=== PATIENT | female | born 1930 | race Caucasian/White ===

== ENCOUNTER → 2017-12-28 10:10 | Outpatient (CLI) | payer MEDICARE, OTHER | END | disposition home or self-care (01) | LOC: D.MRI 10:10 | DX: M25.552 Pain in left hip (principal) ==

== ENCOUNTER 2018-04-14 12:42 | Inpatient (IN) | payer MEDICARE, OTHER ==
[~2018-04-14] VITALS: Ht 162.6 cm; Wt 68.2 kg
[2018-04-14] VITALS (14 sets, daily range): BP systolic 93–161; BP diastolic 37–85
--- NOTE | ~2018-04-14 | MORECARE ---
CASE MANAGEMENT DISCHARGE SUMMARY PATIENT: MAUREEN CANO UNIT: [id number] ADM DATE: 04/14/18 AGE: 87 : 30 SEX: F ROOM/BED: D.2306 AUTHOR: LEIGH STEWART PHYSICIAN: REFERRING PHYSICIAN: JUANITO JENKINS MD DATE OF SERVICE: 04/14/18 Discharge Plan Patient Name: [facility]UREEN CANO [facility] [facility] 1930 Planned Disposition: Home Anticipated Discharge Date: 04/17/18 Discharge Date: Expected LOS: 3 Initial Reviewer: [email or web address] Initial Review Date: 04/14/2018 Generated: 04/14/18 3:19 pm DCPIA - Discharge Planning Initial Assessment Updated by [email or web address]: Keerthi Mckay on 04/14/18 2:16 pm * How many steps to enter\exit or inside your home? None * PCP Dr. Oliveros * Pharmacy [facility] * Preadmission Environment Home with Family * ADLs Independent * Equipment Rolling Walker * List name and contact numbers for known caregivers / representatives who currently or will assist patient after discharge: Ivana Serrano - [facility] [phone] Abdoul Dot - [phone] or [facility] [phone] * Verbal permission to speak to the caregivers and representatives has been obtained from the patient. N/A * Community resources currently utilized None * Additional services required to return to the preadmission environment? No * Can the patient safely return to the preadmission environment? Yes * Has this patient been hospitalized within the prior 30 days at any hospital? No Patient Name: MAUREEN CANO Page 21648 at 1419 All edits/amendments must be made on the electronic document DICTATION DATE: 04/14/181417 BIOFUELS PROCESSING TECHNICIAN: NATALIE 04/14/181417 RPT#: [id number] DC DATE: STATUS: ADM IN [facility] [address] [place] [address] END OF REPORT
--- NOTE | ~2018-04-14 | MORECARE ---
CASE MANAGEMENT DISCHARGE SUMMARY PATIENT: MAUREEN CHRIS UNIT: [id number] ADM DATE: 04/14/18 AGE: 87 : 30 SEX: F ROOM/BED: D.9710 AUTHOR: LEIGH STEWART PHYSICIAN: REFERRING PHYSICIAN: JUANITO JENKINS MD DATE OF SERVICE: 04/23/18 Discharge Plan Patient Name: MAUREEN CHRIS [facility]:[place] : 1930 Planned Disposition: Home Anticipated Discharge Date: 04/23/18 Discharge Date: Expected LOS: 9 Initial Reviewer: [email or web address] Initial Review Date: 04/14/2018 Generated: 04/23/18 5:55 pm Comments DCP- Discharge Planning Updated by [email or web address]: Elbert Mcgovern on 04/23/18 3:[address] Patient Name: MAUREEN CHRIS Encounter No: [id number] : 1930 Primary Insurance: MEDICARE A & B Anticipated DC Date: 04-23-2018 Planned Disposition: Home DCP follow-up note: CM RECEIVED DISCHARGE PLANNING ORDER, MET WITH PT IN ROOM TO DISCUSS DISCHARGE NEEDS AND PLANNING. CM DISCUSSED AVAILABILITY OF HOME HEALTH, REHAB SERVICES AND MEDICAL EQUIPMENT. PT DENIES DISCHARGE NEEDS, DENIES NEED OF HOME HEALTH REPORTING SOMEONE IS WITH HER AT HOME MOST OF THE TIME TO ASSIST. SON OR DAUGHTER TO TRANSPORT HOME AT DISCHARGE. IMPORTANT MESSAGE FROM MEDICARE PROVIDED AND EXPLAINED. BRICK HANDLER NURSE NOTIFIED. MARE DURAN DCP- Discharge Planning Updated by [email or web address]: Keerthi Mckay on 04/14/18 1:[address] Patient Name: MAUREEN CHRIS Admission Status: ER Accout number: [id number] Admission Date: 04-14-2018 : 1930 Admission Diagnosis: Attending: JUANITO JENKINS Current LOS: 1 Anticipated DC Date: 04-17-2018 Planned Disposition: Home Primary Insurance: MEDICARE A & B Discharge Planning Comments: CM met with patient's son, Abdoul Chris, to complete initial dc planning assessment. Patient sedated and on a vent at this time. CM educated patient's son on the CM role and verbal consent given by patient to complete assessment. Patient lives at home with him. He reports that the patient is usually independent in her care at home. At discharge her son says he hopes she can return home. He feels this is a safe discharge plan. Patient's son denied known discharge needs at this time. CM will continue to follow and will assist as needed with dc plans/needs. See below for more assessment information. How many steps to enter\exit or inside your home? None * PCP Dr. Oliveros * Pharmacy [facility] on [address] * Preadmission Environment Home with Family * ADLs Independent * Equipment Rolling Walker * List name and contact numbers for known caregivers / representatives who currently or will assist patient after discharge: Ivana quiñonez - [phone] Abdoul Chris [phone] or [facility] [phone] * Verbal permission to speak to the caregivers and representatives has been obtained from the patient. N/A * Community resources currently utilized None * Additional services required to return to the preadmission environment? No * Can the patient safely return to the preadmission environment? Yes * Has this patient been hospitalized within the prior 30 days at any hospital? No Civil Engineering Project Designer: Keerthi Mckay DCPIA - Discharge Planning Initial Assessment Updated by [email or web address]: Keerthi Mckay on 04/14/18 2:16 pm * How many steps to enter\exit or inside your home? None * PCP Dr. Oliveros * Pharmacy [facility] on [address] * Preadmission Environment Home with Family * ADLs Independent * Equipment Rolling Walker * List name and contact numbers for known caregivers / representatives who currently or will assist patient after discharge: Ivana quiñonez - [phone] Abdoul Chris [phone] or [employer] [phone] * Verbal permission to speak to the caregivers and representatives has been obtained from the patient. N/A * Community resources currently utilized None * Additional services required to return to the preadmission environment? No * Can the patient safely return to the preadmission environment? Yes * Has this patient been hospitalized within the prior 30 days at any hospital? No Coverage Notice Reviewer: [email or web address] - Elbert Mcgovern Notice Issued Date-Time: 04/23/2018 15:25 Notice Type: IM Discharge Notice Notice Delivered To: Patient Relationship to Patient: Physical Therapy Aides Teacher Name: Delivery Method: HAND - Hand Delivered So Days: Prior Verbal Notification: Recipient Understood Notice: Yes Recipient Signature: Yes Med Rec Note Co-signed by Attending: Coverage Notice Comment: Last DP export: 04/14/18 1:37 Patient Name: MAUREEN CHRIS Page 55529 at 1655 All edits/amendments must be made on the electronic document DICTATION DATE: 04/23/181654 METER REPAIRER HELPER: NATALIE 04/23/181654 RPT#: [id number] DC DATE: STATUS: ADM IN [facility] [address] [place] [address] END OF REPORT
--- NOTE | ~2018-04-14 | MORECARE ---
CASE MANAGEMENT DISCHARGE SUMMARY PATIENT: MAUREEN CHRIS UNIT: [id number] ADM DATE: 04/14/18 AGE: 87 : 30 SEX: F ROOM/BED: D.8576 AUTHOR: LEIGH STEWART PHYSICIAN: REFERRING PHYSICIAN: JUANITO JENKINS MD DATE OF SERVICE: 04/24/18 Discharge Plan Patient Name: MAUREEN CHRIS Facility: [facility]:[place] : 1930 Planned Disposition: Home Anticipated Discharge Date: 04/23/18 Discharge Date: Expected LOS: 9 Initial Reviewer: [email or web address] Initial Review Date: 04/14/2018 Generated: 04/24/18 9:12 am Comments DCP- Discharge Planning Updated by [email or web address]: Elbert Mcgovern on 04/23/18 3:[address] Patient Name: MAUEREN CHRIS Encounter No: [id number] : 1930 Primary Insurance: MEDICARE A & B Anticipated DC Date: 04-23-2018 Planned Disposition: Home DCP follow-up note: CM RECEIVED DISCHARGE PLANNING ORDER, MET WITH PT IN ROOM TO DISCUSS DISCHARGE NEEDS AND PLANNING. CM DISCUSSED AVAILABILITY OF HOME HEALTH, REHAB SERVICES AND MEDICAL EQUIPMENT. PT DENIES DISCHARGE NEEDS, DENIES NEED OF HOME HEALTH REPORTING SOMEONE IS WITH HER AT HOME MOST OF THE TIME TO ASSIST. SON OR DAUGHTER TO TRANSPORT HOME AT DISCHARGE. IMPORTANT MESSAGE FROM MEDICARE PROVIDED AND EXPLAINED. EXECUTIVE MEETING MANAGER NURSE NOTIFIED. MARE DURAN DCP- Discharge Planning Updated by [email or web address]: Keerthi Mckay on 04/14/18 1:[address] Patient Name: MAUREEN CHRIS Admission Status: ER Accout number: [id number] Admission Date: 04-14-2018 : 1930 Admission Diagnosis: Attending: JUANITO JENKINS Current LOS: 1 Anticipated DC Date: 04-17-2018 Planned Disposition: Home Primary Insurance: MEDICARE A & B Discharge Planning Comments: CM met with patient's son, Abdoul Chris, to complete initial dc planning assessment. Patient sedated and on a vent at this time. CM educated patient's son on the CM role and verbal consent given by patient to complete assessment. Patient lives at home with him. He reports that the patient is usually independent in her care at home. At discharge her son says he hopes she can return home. He feels this is a safe discharge plan. Patient's son denied known discharge needs at this time. CM will continue to follow and will assist as needed with dc plans/needs. See below for more assessment information. How many steps to enter\exit or inside your home? None * PCP Dr. Oliveros * Pharmacy [facility] on [address] * Preadmission Environment Home with Family * ADLs Independent * Equipment Rolling Walker * List name and contact numbers for known caregivers / representatives who currently or will assist patient after discharge: Ivana quiñonez - [phone] Abdoul Chris [phone] or [facility] [phone] * Verbal permission to speak to the caregivers and representatives has been obtained from the patient. N/A * Community resources currently utilized None * Additional services required to return to the preadmission environment? No * Can the patient safely return to the preadmission environment? Yes * Has this patient been hospitalized within the prior 30 days at any hospital? No Dining Manager: Keerthi Mckay DCPIA - Discharge Planning Initial Assessment Updated by [email or web address]: Keerthi Mckay on 04/14/18 2:16 pm * How many steps to enter\exit or inside your home? None * PCP Dr. Oliveros * Pharmacy [facility] on [address] * Preadmission Environment Home with Family * ADLs Independent * Equipment Rolling Walker * List name and contact numbers for known caregivers / representatives who currently or will assist patient after discharge: Ivana quiñonez - [phone] Abdoul Chris [phone] or [employer] [phone] * Verbal permission to speak to the caregivers and representatives has been obtained from the patient. N/A * Community resources currently utilized None * Additional services required to return to the preadmission environment? No * Can the patient safely return to the preadmission environment? Yes * Has this patient been hospitalized within the prior 30 days at any hospital? No Coverage Notice Reviewer: [id number] - Elbert Mcgovern Notice Issued Date-Time: 04/23/2018 15:25 Notice Type: IM Discharge Notice Notice Delivered To: Patient Relationship to Patient: Adult School Teacher Name: Delivery Method: HAND - Hand Delivered So Days: Prior Verbal Notification: Recipient Understood Notice: Yes Recipient Signature: Yes Med Rec Note Co-signed by Attending: Coverage Notice Comment: Last DP export: 04/23/18 3:55 Patient Name: MAUREEN CHRIS Page 59241 at 0812 All edits/amendments must be made on the electronic document DICTATION DATE: 04/24/18811 VALET PARKING ATTENDANT: NATALIE 04/24/18811 RPT#: [id number] DC DATE: STATUS: ADM IN [facility] [address] [place] [address] END OF REPORT
--- NOTE | ~2018-04-14 | MORECARE ---
CASE MANAGEMENT DISCHARGE SUMMARY PATIENT: MAUREEN CHRIS UNIT: [id number] ADM DATE: 04/14/18 AGE: 87 : 30 SEX: F ROOM/BED: D.2306 AUTHOR: PATDOC PHYSICIAN: REFERRING PHYSICIAN: JUANITO JENKINS MD DATE OF SERVICE: 04/14/18 Discharge Plan Patient Name: MAUREEN CHRIS Facility: [facility]:[place] : 1930 Planned Disposition: Home Anticipated Discharge Date: 04/17/18 Discharge Date: Expected LOS: 3 Initial Reviewer: [email or web address] Initial Review Date: 04/14/2018 Generated: 04/14/18 3:36 pm DCP- Discharge Planning Updated by [email or web address]: Keerthi Mckay on 04/14/18 1:[address] Patient Name: MAUREEN CHRIS Admission Status: ER Accout number: [id number] Admission Date: 04-14-2018 : 1930 Admission Diagnosis: Attending: JUANITO JENKINS Current LOS: 1 Anticipated DC Date: 04-17-2018 Planned Disposition: Home Primary Insurance: MEDICARE A & B Discharge Planning Comments: CM met with patient's son, Abdoul Chris, to complete initial dc planning assessment. Patient sedated and on a vent at this time. CM educated patient's son on the CM role and verbal consent given by patient to complete assessment. Patient lives at home with him. He reports that the patient is usually independent in her care at home. At discharge her son says he hopes she can return home. He feels this is a safe discharge plan. Patient's son denied known discharge needs at this time. CM will continue to follow and will assist as needed with dc plans/needs. See below for more assessment information. How many steps to enter\exit or inside your home? None * PCP Dr. Oliveros * Pharmacy [facility] on [address] * Preadmission Environment Home with Family * ADLs Independent * Equipment Rolling Walker * List name and contact numbers for known caregivers / representatives who currently or will assist patient after discharge: Ivana Serrano - [facility] - [phone] Abdoul Chris - [phone] or [facility] [phone] * Verbal permission to speak to the caregivers and representatives has been obtained from the patient. N/A * Community resources currently utilized None * Additional services required to return to the preadmission environment? No * Can the patient safely return to the preadmission environment? Yes * Has this patient been hospitalized within the prior 30 days at any hospital? No Hand Bobbin Cleaner: Keerthi Mckay DCPIA - Discharge Planning Initial Assessment Updated by [email or web address]: Keerthi Mckay on 04/14/18 2:16 pm * How many steps to enter\exit or inside your home? None * PCP Dr. Oliveros * Pharmacy [facility] on [address] * Preadmission Environment Home with Family * ADLs Independent * Equipment Rolling Walker * List name and contact numbers for known caregivers / representatives who currently or will assist patient after discharge: Ivana Serrano - [facility] - [phone] Abdoul Dot - [phone] or [facility] [phone] * Verbal permission to speak to the caregivers and representatives has been obtained from the patient. N/A * Community resources currently utilized None * Additional services required to return to the preadmission environment? No * Can the patient safely return to the preadmission environment? Yes * Has this patient been hospitalized within the prior 30 days at any hospital? No Last DP export: 04/14/18 1:19 Patient Name: MAUREEN CHRIS Page 19285 at 1437 All edits/amendments must be made on the electronic document DICTATION DATE: 04/14/181435 RN CRITICAL CARE: NATALIE 04/14/181435 RPT#: [id number] DC DATE: STATUS: ADM IN [facility] [address] [place] [address] END OF REPORT
--- NOTE | ~2018-04-14 | MORECARE ---
CASE MANAGEMENT DISCHARGE SUMMARY PATIENT: MAUREEN CHRIS UNIT: [id number] ADM DATE: 04/14/18 AGE: 87 : 30 SEX: F ROOM/BED: D.0398 AUTHOR: PAT,DOC PHYSICIAN: REFERRING PHYSICIAN: JUANITO JENKINS MD DATE OF SERVICE: 04/26/18 Discharge Plan Patient Name: MAUREEN CHRIS Facility: [facility]:[place] : 1930 Planned Disposition: Home Anticipated Discharge Date: 04/26/18 Discharge Date: Expected LOS: 12 Initial Reviewer: [email or web address] Initial Review Date: 04/14/2018 Generated: 04/26/18 12:27 pm Comments DCP- Discharge Planning Updated by [email or web address]: Elbert Pham on 04/26/18 10:[address] Patient Name: MAUREEN CHRIS Encounter No: [id number] : 1930 Primary Insurance: MEDICARE A & B Anticipated DC Date: 04-26-2018 Planned Disposition: Home DCP follow-up note: CM MET WITH PT IN ROOM TO DISCUSS DISCHARGE NEEDS AND PLANNING. CM DISCUSSED AVAILABILITY OF HOME HEALTH, REHAB SERVICES AND MEDICAL EQUIPMENT. PT DENIES DISCHARGE NEEDS, REPORTS HAVING FAMILY WITH HER AT HOME MOST ALL OF THE TIME. PT REALLY DOES NOT WANT HOUSECALLS BUT WILL SPEAK TO THEM WHEN THEY COME BY THE HOUSE TO SEE IF THEY ARE NEEDED. PT REPORTS SHE DOESN'T MIND GOING TO THE DOCTORS OFFICE FOR ANY NEEDED VISITS. PT'S SON HERE TO TRANSPORT HOME AT DISCHARGE TODAY. IMPORTANT MESSAGE FROM MEDICARE PROVIDED AND EXPLAINED. RADIOLOGICAL ENGINEER NURSE NOTIFIED. Elbert Pham, CASE MANAGEMENT DCP- Discharge Planning Updated by [id number]: Elbert Pham on 04/23/18 3:[address] Patient Name: MAUREEN CHRIS Encounter No: [id number] : 1930 Primary Insurance: MEDICARE A & B Anticipated DC Date: 04-23-2018 Planned Disposition: Home DCP follow-up note: CM RECEIVED DISCHARGE PLANNING ORDER, MET WITH PT IN ROOM TO DISCUSS DISCHARGE NEEDS AND PLANNING. CM DISCUSSED AVAILABILITY OF HOME HEALTH, REHAB SERVICES AND MEDICAL EQUIPMENT. PT DENIES DISCHARGE NEEDS, DENIES NEED OF HOME HEALTH REPORTING SOMEONE IS WITH HER AT HOME MOST OF THE TIME TO ASSIST. SON OR DAUGHTER TO TRANSPORT HOME AT DISCHARGE. IMPORTANT MESSAGE FROM MEDICARE PROVIDED AND EXPLAINED. RADIOLOGICAL ENGINEER NURSE NOTIFIED. ELBERT PHAM, CASE MANAGEMENT DCP- Discharge Planning Updated by [email or web address]: Keerthi Mckay on 04/14/18 1:[address] Patient Name: MAUREEN CHRIS Admission Status: ER Accout number: [id number] Admission Date: 04-14-2018 : 1930 Admission Diagnosis: Attending: JUANITO JENKINS Current LOS: 1 Anticipated DC Date: 04-17-2018 Planned Disposition: Home Primary Insurance: MEDICARE A & B Discharge Planning Comments: CM met with patient's son, Abdoul Chris, to complete initial dc planning assessment. Patient sedated and on a vent at this time. CM educated patient's son on the CM role and verbal consent given by patient to complete assessment. Patient lives at home with him. He reports that the patient is usually independent in her care at home. At discharge her son says he hopes she can return home. He feels this is a safe discharge plan. Patient's son denied known discharge needs at this time. CM will continue to follow and will assist as needed with dc plans/needs. See below for more assessment information. How many steps to enter\exit or inside your home? None * PCP Dr. Oliveros * Pharmacy [facility] on [address] * Preadmission Environment Home with Family * ADLs Independent * Equipment Rolling Walker * List name and contact numbers for known caregivers / representatives who currently or will assist patient after discharge: Ivana Serrano - daughter - [phone] Abdoul Chris - [phone] or cell [phone] * Verbal permission to speak to the caregivers and representatives has been obtained from the patient. N/A * Community resources currently utilized None * Additional services required to return to the preadmission environment? No * Can the patient safely return to the preadmission environment? Yes * Has this patient been hospitalized within the prior 30 days at any hospital? No Laborer Wharf: Keerthi Mckay DCPIA - Discharge Planning Initial Assessment Updated by [email or web address]: Keerthi Mckay on 04/14/18 2:16 pm * How many steps to enter\exit or inside your home? None * PCP Dr. Oliveros * Pharmacy [facility] on [address] * Preadmission Environment Home with Family * ADLs Independent * Equipment Rolling Walker * List name and contact numbers for known caregivers / representatives who currently or will assist patient after discharge: Ivana Serrano - [facility] - [phone] Abdoul Chris - [phone] or [facility] [phone] * Verbal permission to speak to the caregivers and representatives has been obtained from the patient. N/A * Community resources currently utilized None * Additional services required to return to the preadmission environment? No * Can the patient safely return to the preadmission environment? Yes * Has this patient been hospitalized within the prior 30 days at any hospital? No Coverage Notice Reviewer: [email or web address] Pham Notice Issued Date-Time: 04/23/2018 15:25 Notice Type: IM Discharge Notice Notice Delivered To: Patient Relationship to Patient: Head Bander And Liner Operator Name: Delivery Method: HAND - Hand Delivered So Days: Prior Verbal Notification: Recipient Understood Notice: Yes Recipient Signature: Yes Med Rec Note Co-signed by Attending: Coverage Notice Comment: Reviewer: NICK Pham Notice Issued Date-Time: 04/26/2018 11:12 Notice Type: IM Discharge Notice Notice Delivered To: Patient Relationship to Patient: Head Bander And Liner Operator Name: Delivery Method: HAND - Hand Delivered So Days: Prior Verbal Notification: Recipient Understood Notice: Yes Recipient Signature: Yes Med Rec Note Co-signed by Attending: Coverage Notice Comment: Last DP export: 04/24/18 7:12 Patient Name: MAUREEN CHRIS Page 71270 at 1127 All edits/amendments must be made on the electronic document DICTATION DATE: 04/26/181126 SERVICE DESK TEAM LEAD: NATALIE 04/26/181126 RPT#: [id number] DC DATE: STATUS: ADM IN [facility] [address] [place] [address] END OF REPORT
[2018-04-14 13:08] LABS: BASOPHILS 0.1 % (0-2); EOSINOPHILS 0.3 % (0-7); HEMATOCRIT 33.7 % (36.0-48.0); HEMOGLOBIN 11.3 g/dL (12-16); IMMATURE GRANULOCYTES 0.3 % (0-5); LYMPHOCYTES 3.3 % (15-50); MCH 29.4 pg (26.0-34.0); MCHC 33.5 g/dL (31.0-37.0); MCV 87.5 fL (80.0-100.0); MEAN PLATELET VOLUME 9.7 fL (7.4-10.4); MONOCYTES 1.2 % (2-11); NEUTROPHILS 94.8 % (40-80); PLATELET COUNT 297 10x3/uL (130-400); RBC 3.85 10x6/uL (4.00-5.40); WBC 14.4 10x3/uL (4.8-10.8)
[2018-04-14 13:23] LABS: ALBUMIN 3.3 g/dL (3.4-5.0); ANION GAP 18.6 mmol/L (8-16); BILIRUBIN - TOTAL 0.12 mg/dL (0.2-1.3); C-REACTIVE PROTEIN 2.3 mg/dL (0.0-0.9); CALCIUM 9.5 mg/dL (8.5-10.1); CARBON DIOXIDE 22.9 mmol/L (21.0-32.0); CREATININE - SERUM 1.9 mg/dL (0.6-1.3); POTASSIUM - SERUM 4.5 mmol/L (3.5-5.1); PROTEIN - SERUM 7.1 g/dL (6.4-8.2)
[2018-04-14] MEDS ORDERED: UNITHROID88 MCG PO (15:22)
[2018-04-14] MEDS ORDERED: MAXZIDE 75/501 TAB PO (15:23)
[2018-04-14] MEDS ORDERED: CYCLOBENZAPRINE10 MG PO (15:23)
[2018-04-14] MEDS ORDERED: HYDROCODON-ACE1 EAC7 PO (15:25)
[2018-04-14] MEDS ORDERED: OMEPRAZOLE20 M1 PO (15:26)
[2018-04-14] MEDS ORDERED: LOPID600 MG PO (15:28)
[2018-04-14] MEDS ORDERED: MOBIC7.5 MG PO (15:29)
[2018-04-14] MEDS ORDERED: LOTREL 10-40 M1 EACH (15:30)
[2018-04-14] MEDS ORDERED: ALENDRONATE SOD70 MG PO (15:30)
[2018-04-14] MEDS ORDERED: DIFLUCAN150 MG PO (15:31)
[2018-04-15] VITALS (29 sets, daily range): BP systolic 92–137; BP diastolic 40–85
[2018-04-15 04:54] LABS: BASOPHILS 0 % (0-2); EOSINOPHILS 0 % (0-7); HEMOGLOBIN 9.1 g/dL (12-16); IMMATURE GRANULOCYTES 0.3 % (0-5); LYMPHOCYTES 3.3 % (15-50); MCH 29.2 pg (26.0-34.0); MCHC 33.8 g/dL (31.0-37.0); MCV 86.2 fL (80.0-100.0); MEAN PLATELET VOLUME 9.7 fL (7.4-10.4); MONOCYTES 1.1 % (2-11); NEUTROPHILS 95.3 % (40-80); PLATELET COUNT 303 10x3/uL (130-400); RBC 3.12 10x6/uL (4.00-5.40); RDW 13.1 % (11.5-14.5); WBC 10.8 10x3/uL (4.8-10.8)
[2018-04-15 04:57] LABS: HEMATOCRIT 26.9 % (36.0-48.0)
[2018-04-15 05:09] LABS: ANION GAP 19.8 mmol/L (8-16); CALCIUM 8.3 mg/dL (8.5-10.1); CARBON DIOXIDE 18.5 mmol/L (21.0-32.0); CREATININE - SERUM 1.5 mg/dL (0.6-1.3); POTASSIUM - SERUM 4.3 mmol/L (3.5-5.1)
[2018-04-16] VITALS (26 sets, daily range): BP systolic 104–168; BP diastolic 47–92; Ht 162.6 cm; Wt 68.2 kg
[2018-04-16 04:31] LABS: BASOPHILS 0.1 % (0-2); EOSINOPHILS 0 % (0-7); HEMATOCRIT 27.4 % (36.0-48.0); IMMATURE GRANULOCYTES 0.3 % (0-5); LYMPHOCYTES 2.7 % (15-50); MCH 28.8 pg (26.0-34.0); MCHC 32.8 g/dL (31.0-37.0); MCV 87.8 fL (80.0-100.0); MEAN PLATELET VOLUME 10.1 fL (7.4-10.4); MONOCYTES 1.9 % (2-11); PLATELET COUNT 332 10x3/uL (130-400); RBC 3.12 10x6/uL (4.00-5.40); RDW 13.4 % (11.5-14.5); WBC 14.3 10x3/uL (4.8-10.8)
[2018-04-16 05:03] LABS: % SATURATION 17 % (15-55); ALBUMIN 2.6 g/dL (3.4-5.0); ANION GAP 18.3 mmol/L (8-16); CALCIUM 7.8 mg/dL (8.5-10.1); CARBON DIOXIDE 19.6 mmol/L (21.0-32.0); CREATININE - SERUM 1.4 mg/dL (0.6-1.3); IRON 55 ug/dl (35-150); PHOSPHOROUS 4.1 mg/dL (2.5-4.9); POTASSIUM - SERUM 3.9 mmol/L (3.5-5.1); PROTEIN - SERUM 5.9 g/dL (6.4-8.2); TOTAL IRON BIND CAPACITY 321 ug/dl (260-445); UNSAT IRON BIND CAPACITY 266 ug/dl (150-375)
[2018-04-16 05:05] LABS: BILIRUBIN - TOTAL 0.08 mg/dL (0.2-1.3)
[2018-04-17] VITALS (21 sets, daily range): BP systolic 131–171; BP diastolic 56–113
[2018-04-17 04:52] LABS: BASOPHILS 0.1 % (0-2); EOSINOPHILS 0 % (0-7); HEMATOCRIT 27.1 % (36.0-48.0); HEMOGLOBIN 8.8 g/dL (12-16); IMMATURE GRANULOCYTES 1.1 % (0-5); LYMPHOCYTES 1.7 % (15-50); MCH 28.7 pg (26.0-34.0); MCHC 32.5 g/dL (31.0-37.0); MCV 88.3 fL (80.0-100.0); MONOCYTES 2.9 % (2-11); NEUTROPHILS 94.2 % (40-80); PLATELET COUNT 351 10x3/uL (130-400); RBC 3.07 10x6/uL (4.00-5.40); RDW 13.5 % (11.5-14.5)
[2018-04-17 04:59] LABS: ANION GAP 13.8 mmol/L (8-16); CALCIUM 7.6 mg/dL (8.5-10.1); CARBON DIOXIDE 22.7 mmol/L (21.0-32.0); CREATININE - SERUM 1.2 mg/dL (0.6-1.3); MAGNESIUM - SERUM 2.2 mg/dL (1.8-2.4); POTASSIUM - SERUM 3.5 mmol/L (3.5-5.1)
[2018-04-18] VITALS (8 sets, daily range): BP systolic 141–167; BP diastolic 62–93
[2018-04-18 04:40] LABS: BASOPHILS 0.1 % (0-2); EOSINOPHILS 0.1 % (0-7); HEMATOCRIT 32.3 % (36.0-48.0); HEMOGLOBIN 10.5 g/dL (12-16); IMMATURE GRANULOCYTES 1.7 % (0-5); LYMPHOCYTES 1.7 % (15-50); MCH 28.8 pg (26.0-34.0); MCHC 32.5 g/dL (31.0-37.0); MCV 88.7 fL (80.0-100.0); MEAN PLATELET VOLUME 9.9 fL (7.4-10.4); MONOCYTES 3.6 % (2-11); NEUTROPHILS 92.8 % (40-80); PLATELET COUNT 367 10x3/uL (130-400); RBC 3.64 10x6/uL (4.00-5.40); RDW 13.5 % (11.5-14.5)
[2018-04-18 04:43] LABS: WBC 18.6 10x3/uL (4.8-10.8)
[2018-04-18 04:58] LABS: ANION GAP 14.4 mmol/L (8-16); CALCIUM 7.9 mg/dL (8.5-10.1); CARBON DIOXIDE 24.4 mmol/L (21.0-32.0); CREATININE - SERUM 0.9 mg/dL (0.6-1.3); MAGNESIUM - SERUM 2.2 mg/dL (1.8-2.4); POTASSIUM - SERUM 3.8 mmol/L (3.5-5.1)
[2018-04-18 12:16] LABS: C1 ESTERASE INHIBITOR 42 mg/dL (21-39)
[2018-04-19] VITALS (11 sets, daily range): BP systolic 136–163; BP diastolic 56–73
[2018-04-19 05:58] LABS: BASOPHILS 0.1 % (0-2); EOSINOPHILS 0 % (0-7); HEMATOCRIT 30.1 % (36.0-48.0); HEMOGLOBIN 9.8 g/dL (12-16); IMMATURE GRANULOCYTES 2.1 % (0-5); LYMPHOCYTES 5.4 % (15-50); MCH 28.6 pg (26.0-34.0); MCHC 32.6 g/dL (31.0-37.0); MCV 87.8 fL (80.0-100.0); MEAN PLATELET VOLUME 9.7 fL (7.4-10.4); NEUTROPHILS 89.4 % (40-80); PLATELET COUNT 303 10x3/uL (130-400); RBC 3.43 10x6/uL (4.00-5.40); RDW 13.2 % (11.5-14.5); WBC 13.4 10x3/uL (4.8-10.8)
[2018-04-19 06:03] LABS: ANION GAP 14.2 mmol/L (8-16); APTT 27.4 SECONDS (22.8-39.4); CALCIUM 7.9 mg/dL (8.5-10.1); CARBON DIOXIDE 25.4 mmol/L (21.0-32.0); CREATININE - SERUM 0.9 mg/dL (0.6-1.3); INR 1.17 (0.85-1.17); MAGNESIUM - SERUM 2.1 mg/dL (1.8-2.4); POTASSIUM - SERUM 3.6 mmol/L (3.5-5.1); PROTIME 14.5 SECONDS (11.6-15.0)
[2018-04-20 00:56] VITALS: BP 147/55
[2018-04-20 06:21] VITALS: BP 152/71
[2018-04-20 06:37] LABS: BASOPHILS 0.2 % (0-2); EOSINOPHILS 0.3 % (0-7); HEMATOCRIT 28.9 % (36.0-48.0); HEMOGLOBIN 9.4 g/dL (12-16); IMMATURE GRANULOCYTES 4.1 % (0-5); LYMPHOCYTES 6.5 % (15-50); MCH 28.9 pg (26.0-34.0); MCHC 32.5 g/dL (31.0-37.0); MCV 88.9 fL (80.0-100.0); MEAN PLATELET VOLUME 9.8 fL (7.4-10.4); MONOCYTES 11.1 % (2-11); NEUTROPHILS 77.8 % (40-80); PLATELET COUNT 260 10x3/uL (130-400); RBC 3.25 10x6/uL (4.00-5.40); RDW 13.1 % (11.5-14.5)
[2018-04-20 06:41] LABS: ANION GAP 12.4 mmol/L (8-16); CALCIUM 7.7 mg/dL (8.5-10.1); CARBON DIOXIDE 26.1 mmol/L (21.0-32.0); CREATININE - SERUM 0.8 mg/dL (0.6-1.3); MAGNESIUM - SERUM 1.9 mg/dL (1.8-2.4); POTASSIUM - SERUM 3.5 mmol/L (3.5-5.1); WBC 8.9 10x3/uL (4.8-10.8)
[2018-04-20 08:03] VITALS: BP 178/68
[2018-04-20 09:03] LABS: % SATURATION 33 % (15-55); IRON 88 ug/dl (35-150); TOTAL IRON BIND CAPACITY 265 ug/dl (260-445); UNSAT IRON BIND CAPACITY 177 ug/dl (150-375)
[2018-04-20 11:52] VITALS: BP 122/62
[2018-04-20 15:58] VITALS: BP 151/67
[2018-04-20 20:00] VITALS: BP 129/51
[2018-04-21] VITALS: BP 150/59
[2018-04-21 06:04] VITALS: BP 150/60
[2018-04-21 06:27] LABS: BASOPHILS 0.1 % (0-2); EOSINOPHILS 0.7 % (0-7); HEMATOCRIT 28.7 % (36.0-48.0); HEMOGLOBIN 9.5 g/dL (12-16); IMMATURE GRANULOCYTES 5.2 % (0-5); LYMPHOCYTES 5.7 % (15-50); MCH 29.1 pg (26.0-34.0); MCHC 33.1 g/dL (31.0-37.0); MCV 87.8 fL (80.0-100.0); MEAN PLATELET VOLUME 9.6 fL (7.4-10.4); MONOCYTES 9.1 % (2-11); NEUTROPHILS 79.2 % (40-80); PLATELET COUNT 260 10x3/uL (130-400); RBC 3.27 10x6/uL (4.00-5.40); WBC 10.2 10x3/uL (4.8-10.8)
[2018-04-21 06:42] LABS: CALCIUM 8.1 mg/dL (8.5-10.1); CARBON DIOXIDE 26.2 mmol/L (21.0-32.0); CREATININE - SERUM 0.8 mg/dL (0.6-1.3); MAGNESIUM - SERUM 1.9 mg/dL (1.8-2.4); POTASSIUM - SERUM 3.2 mmol/L (3.5-5.1)
[2018-04-21 08:00] VITALS: BP 150/56
[2018-04-21 08:16] LABS: FOLATE (FOLIC ACID) - SERUM 9.5 ng/mL (>3.0)
[2018-04-21 16:02] VITALS: BP 126/84
[2018-04-21 20:12] VITALS: BP 131/62
[2018-04-22 00:20] VITALS: BP 131/53
[2018-04-22 04:49] VITALS: BP 127/53
[2018-04-22 08:52] VITALS: BP 168/61
[2018-04-22 11:02] VITALS: BP 160/62
[2018-04-22 15:44] VITALS: BP 141/50
[2018-04-22 21:59] VITALS: BP 143/58
[2018-04-23 02:24] VITALS: BP 148/66
[2018-04-23 05:45] VITALS: BP 143/60
[2018-04-23 09:05] VITALS: BP 146/73
[2018-04-23 11:08] VITALS: BP 130/86
[2018-04-23 16:16] VITALS: BP 118/69
[2018-04-23 20:00] VITALS: BP 150/67
[2018-04-24 00:51] VITALS: BP 145/63
[2018-04-24 04:57] VITALS: BP 140/57
[2018-04-24 10:44] LABS: BASOPHILS 0.2 % (0-2); EOSINOPHILS 0.1 % (0-7); HEMATOCRIT 33.5 % (36.0-48.0); HEMOGLOBIN 11.1 g/dL (12-16); IMMATURE GRANULOCYTES 7.2 % (0-5); LYMPHOCYTES 2.6 % (15-50); MCH 29.2 pg (26.0-34.0); MCHC 33.1 g/dL (31.0-37.0); MCV 88.2 fL (80.0-100.0); MEAN PLATELET VOLUME 9.8 fL (7.4-10.4); MONOCYTES 5.7 % (2-11); NEUTROPHILS 84.2 % (40-80); PLATELET COUNT 305 10x3/uL (130-400); RDW 13.4 % (11.5-14.5); WBC 19.3 10x3/uL (4.8-10.8)
[2018-04-24 10:54] LABS: ANION GAP 12.5 mmol/L (8-16); CALCIUM 8.7 mg/dL (8.5-10.1); CARBON DIOXIDE 29.4 mmol/L (21.0-32.0); CREATININE - SERUM 0.9 mg/dL (0.6-1.3); POTASSIUM - SERUM 3.9 mmol/L (3.5-5.1)
[2018-04-24 11:21] VITALS: BP 150/47
[2018-04-24 15:49] VITALS: BP 149/60
[2018-04-24 20:00] VITALS: BP 160/59
[2018-04-25 01:10] VITALS: BP 143/65
[2018-04-25 06:06] VITALS: BP 163/67
[2018-04-25 08:24] VITALS: BP 139/62
[2018-04-25 11:27] VITALS: BP 142/61
[2018-04-25 14:15] LABS: APPEARANCE HAZY (CLEAR); BILIRUBIN NEGATIVE (NEGATIVE); COLOR STRAW (YELLOW); GLUCOSE NEGATIVE (NEGATIVE); KETONE NEGATIVE (NEGATIVE); NITRITE NEGATIVE (NEGATIVE); PROTEIN NEGATIVE (NEGATIVE); SPECIFIC GRAVITY 1.005 (1.005-1.020); UROBILINOGEN NORMAL (NORMAL)
[2018-04-25 14:17] LABS: BACTERIA MODERATE /hpf (NONE SEEN); EPITHELIAL CELLS 0-5 /hpf (0-5); RED CELLS - URINE 0-5 /hpf (0-5); WHITE CELLS - URINE 0-5 /hpf (0-5); YEAST <1+ /hpf (NONE SEEN)
[2018-04-25 15:35] VITALS: BP 146/56
[2018-04-25 20:00] VITALS: BP 146/65
[2018-04-26] VITALS: BP 146/64
[2018-04-26 05:57] VITALS: BP 131/60
[2018-04-26 09:17] LABS: BASOPHILS 0.2 % (0-2); EOSINOPHILS 0.7 % (0-7); HEMATOCRIT 30.6 % (36.0-48.0); HEMOGLOBIN 9.9 g/dL (12-16); IMMATURE GRANULOCYTES 5.5 % (0-5); LYMPHOCYTES 7.4 % (15-50); MCH 28.6 pg (26.0-34.0); MCHC 32.4 g/dL (31.0-37.0); MCV 88.4 fL (80.0-100.0); MEAN PLATELET VOLUME 9.7 fL (7.4-10.4); MONOCYTES 7.6 % (2-11); NEUTROPHILS 78.6 % (40-80); PLATELET COUNT 254 10x3/uL (130-400); RBC 3.46 10x6/uL (4.00-5.40); RDW 13.5 % (11.5-14.5); WBC 12.3 10x3/uL (4.8-10.8)
[2018-04-26 09:28] LABS: ANION GAP 9.4 mmol/L (8-16); CALCIUM 8.3 mg/dL (8.5-10.1); CARBON DIOXIDE 33.7 mmol/L (21.0-32.0); CREATININE - SERUM 0.8 mg/dL (0.6-1.3); POTASSIUM - SERUM 3.1 mmol/L (3.5-5.1)
[2018-04-26 09:54] VITALS: BP 140/77
[2018-04-26] MEDS ORDERED: NORVASC10 MG PO (10:14)
[2018-04-26] MEDS ORDERED: SINGULAIR10 MG PO (10:15)
[2018-04-26 11:42] VITALS: BP 140/54
== END 2018-04-26 14:10 | disposition home or self-care (01) | DRG 915 ==
LOC: D.ER 12:42 → D.ICU 13:48 → D.M2 13:48 → D.SDCHOLD 04-19 08:59 → D.M2 04-19 09:00
PROVIDERS: Family Medicine; Internal Medicine Nephrology; Internal Medicine Pulmonary Disease; Legal Medicine
PROC: 5A1945Z Respiratory Ventilation, 24-96 Consecutive Hours (ICD-10-PCS; principal; 2018-04-14)
PROC: 0BBC3ZX Excision of Right Upper Lung Lobe, Percutaneous Approach, Diagnostic (ICD-10-PCS; 2018-04-19)
DX: T78.3XXA Angioneurotic edema, initial encounter (principal); J18.9 Pneumonia, unspecified organism; J96.00 Acute respiratory failure, unspecified whether with hypoxia or hypercapnia; N17.9 Acute kidney failure, unspecified; E87.2 Acidosis; J90 Pleural effusion, not elsewhere classified; C34.11 Malignant neoplasm of upper lobe, right bronchus or lung; K21.9 Gastro-esophageal reflux disease without esophagitis; J45.909 Unspecified asthma, uncomplicated; I12.9 Hypertensive chronic kidney disease with stage 1 through stage 4 chronic kidney disease, or unspecified chronic kidney disease; N18.9 Chronic kidney disease, unspecified; E03.9 Hypothyroidism, unspecified; E78.5 Hyperlipidemia, unspecified; D64.9 Anemia, unspecified; I95.9 Hypotension, unspecified; T50.905A Adverse effect of unspecified drugs, medicaments and biological substances, initial encounter; M81.0 Age-related osteoporosis without current pathological fracture; Z87.891 Personal history of nicotine dependence; R91.8 Other nonspecific abnormal finding of lung field; I51.7 Cardiomegaly; R59.0 Localized enlarged lymph nodes; J30.9 Allergic rhinitis, unspecified

== ENCOUNTER 2018-05-01 16:43 | Inpatient (IN) | payer MEDICARE, OTHER ==
[~2018-05-01] VITALS: Ht 162.6 cm; Wt 72.9 kg
--- NOTE | ~2018-05-01 | MORECARE ---
CASE MANAGEMENT DISCHARGE SUMMARY PATIENT: MAUREEN CANO UNIT: [id number] ADM DATE: 05/01/18 AGE: 87 : 30 SEX: F ROOM/BED: D.2218 AUTHOR: PAT,DOC PHYSICIAN: REFERRING PHYSICIAN: NAZANIN ARMENDARIZ MD DATE OF SERVICE: 05/12/18 Discharge Plan Patient Name: MAUREEN CANO Facility: [facility]:[place] : 1930 Planned Disposition: Home Anticipated Discharge Date: Discharge Date: Expected LOS: Initial Reviewer: [email or web address] Initial Review Date: 05/02/2018 Generated: 05/12/18 2:34 pm Comments DCP- Discharge Planning Updated by [email or web address]: Soo Kwon on 05/12/18 12:[address] Patient Name: MAUREEN CANO Admission Status: ER Accout number: [id number] Admission Date: 05-01-2018 : 1930 Admission Diagnosis:UNSPECIFIED ABDOMINAL PAIN Attending: NAZANIN ARMENDARIZ Current LOS: 11 Anticipated DC Date: Planned Disposition: Home Primary Insurance: MEDICARE A & B Discharge Planning Comments: CM SPOKE WITH MIKE WITH [facility] AND SHE CONFIRMED THAT PATIENT HAS BEEN ACCEPTED BY THEM. SHE STATES IF THE PATIENT IS DISCHARGE BEFORE 4PM TODAY TO CALL HER AT [phone] AND IF SHE IS DC'D AFTER 4PM TODAY CALL [phone] AND THEY WILL GET EVERYTHING SET UP AND MEET THE PATIENT AND FAMILY AT THE HOME. MD NOTE STATES THAT HOSPITAL BED AND OXYGEN WILL ARRIVE AT THE PATIENT'S HOME, HOSPICE SHOULD BE SETTING THAT UP. Senior Reactor Operator: Soo Kwon DCP- Discharge Planning Updated by [email or web address]: Olesya Goins on 05/11/18 8:[address] [facility] HERE FOR EVALUATION, SPOKE WITH ISAAC (DAUGHTER) SHE STATED THAT THE PLAN WAS FOR HER MOTHER TO GO TO HER HOUSE TOMORROW AFTER DME WAS SET UP. CM WILL CONTINUE TO FOLLOW AND ASSIST WITH DC PLANNING NEEDS DCP- Discharge Planning Updated by [email or web address]: Olesya Goins on 05/11/18 7:[address] HOSPICE REFERRAL SENT TO [facility], I SPOKE WITH SAIDA THEY WILL COME UP AND EVALUATE PATIENT DCP- Discharge Planning Updated by [email or web address]: Olesya Goins on 05/10/18 1:[address] spoke with patient's daughter in length about what Hospice is and what hospice can do for her mother. She would like to set up a time for all of her siblings and MD to talk about it. She said her mother does not know that there is no plan for additional treatment for the cancer DCP- Discharge Planning Updated by [email or web address]: Olesya Goins on 05/03/18 4:[address] Patient Name: MAUREEN CANO Admission Status: ER Accout number: [id number] Admission Date: 05-01-2018 : 1930 Admission Diagnosis:UNSPECIFIED ABDOMINAL PAIN Attending: NAZANIN ARMENDARIZ Current LOS: 2 Anticipated DC Date: Planned Disposition: Home Primary Insurance: MEDICARE A & B Discharge Planning Comments: CM met with patient to assess discharge planning needs. Patient stated that she lives in [place] and her adult son lives with her. She is independent with her care and uses a walker at home. She stated that there is 2 steps to enter in her home. She stated that either her daughter or son will be the one to drive her home at DC. I asked her about community resources and home health and rehab. She stated that she will think about it and she asked about meals on wheels. CM will continue to follow and assist with DC planning. Senior Reactor Operator: Olesya Goins DCPIA - Discharge Planning Initial Assessment Updated by [email or web address]: Olesya Goins on 05/03/18 4:45 pm * Is the patient Alert and Oriented? Yes * How many steps to enter\exit or inside your home? * PCP BRENDEN MARTÍNEZ * [facility] * Preadmission Environment Home with Family * ADLs Independent * Equipment Walker * List name and contact numbers for known caregivers / representatives who currently or will assist patient after discharge: NAZANIN [phone] * Verbal permission to speak to the caregivers and representatives has been obtained from the patient. Yes * Community resources currently utilized None * Additional services required to return to the preadmission environment? Yes * Can the patient safely return to the preadmission environment? Yes * Has this patient been hospitalized within the prior 30 days at any hospital? No Last DP export: 05/11/18 8:54 a Patient Name: MAUREEN CANO Page 59715 at 1334 All edits/amendments must be made on the electronic document DICTATION DATE: 05/12/181332 EPIC BEACON ANALYST: NATALIE 05/12/181332 RPT#: [id number] DC DATE: STATUS: ADM IN [facility] [address] [place] [address] END OF REPORT
--- NOTE | ~2018-05-01 | MORECARE ---
CASE MANAGEMENT DISCHARGE SUMMARY PATIENT: MAUREEN CANO UNIT: [id number] ADM DATE: 05/01/18 AGE: 87 : 30 SEX: F ROOM/BED: D.2218 AUTHOR: LEIGH STEWART PHYSICIAN: REFERRING PHYSICIAN: NAZANIN ARMENDARIZ MD DATE OF SERVICE: 05/13/18 Discharge Plan Patient Name: MAUREEN CANO Facility: [facility]:[place] : 1930 Planned Disposition: Home Anticipated Discharge Date: 05/13/18 Discharge Date: 05/13/2018 Expected LOS: 12 Initial Reviewer: [email or web address] Initial Review Date: 05/02/2018 Generated: 05/13/18 6:45 pm Comments DCP- Discharge Planning Updated by [email or web address]: Soo Kwon on 05/12/18 12:[address] Patient Name: MAUREEN CANO Admission Status: ER Accout number: [id number] Admission Date: 05-01-2018 : 1930 Admission Diagnosis:UNSPECIFIED ABDOMINAL PAIN Attending: NAZANIN ARMENDARIZ Current LOS: 11 Anticipated DC Date: Planned Disposition: Home Primary Insurance: MEDICARE A & B Discharge Planning Comments: CM SPOKE WITH MIKE WITH [facility] AND SHE CONFIRMED THAT PATIENT HAS BEEN ACCEPTED BY THEM. SHE STATES IF THE PATIENT IS DISCHARGE BEFORE 4PM TODAY TO CALL HER AT [phone] AND IF SHE IS DC'D AFTER 4PM TODAY CALL [phone] AND THEY WILL GET EVERYTHING SET UP AND MEET THE PATIENT AND FAMILY AT THE HOME. MD NOTE STATES THAT HOSPITAL BED AND OXYGEN WILL ARRIVE AT THE PATIENT'S HOME, HOSPICE SHOULD BE SETTING THAT UP. Loan Interviewer: Soo Kwon DCP- Discharge Planning Updated by [email or web address]: Olesya Goins on 05/11/18 8:[address] [facility] HERE FOR EVALUATION, SPOKE WITH ISAAC (DAUGHTER) SHE STATED THAT THE PLAN WAS FOR HER MOTHER TO GO TO HER HOUSE TOMORROW AFTER DME WAS SET UP. CM WILL CONTINUE TO FOLLOW AND ASSIST WITH DC PLANNING NEEDS DCP- Discharge Planning Updated by [email or web address]: Olesya Goins on 05/11/18 7:[address] HOSPICE REFERRAL SENT TO [facility], I SPOKE WITH SAIDA THEY WILL COME UP AND EVALUATE PATIENT DCP- Discharge Planning Updated by [id number]: Olesya Goins on 05/10/18 1:[address] spoke with patient's daughter in length about what Hospice is and what hospice can do for her mother. She would like to set up a time for all of her siblings and MD to talk about it. She said her mother does not know that there is no plan for additional treatment for the cancer DCP- Discharge Planning Updated by [email or web address]: Olesya Sabaken on 05/03/18 4:[address] Patient Name: MAUREEN CANO Admission Status: ER Accout number: [id number] Admission Date: 05-01-2018 : 1930 Admission Diagnosis:UNSPECIFIED ABDOMINAL PAIN Attending: NAZANIN ARMENDARIZ Current LOS: 2 Anticipated DC Date: Planned Disposition: Home Primary Insurance: MEDICARE A & B Discharge Planning Comments: CM met with patient to assess discharge planning needs. Patient stated that she lives in [place] and her adult son lives with her. She is independent with her care and uses a walker at home. She stated that there is 2 steps to enter in her home. She stated that either her daughter or son will be the one to drive her home at DC. I asked her about community resources and home health and rehab. She stated that she will think about it and she asked about meals on wheels. CM will continue to follow and assist with DC planning. Loan Interviewer: Olesya Goins DCPIA - Discharge Planning Initial Assessment Updated by [email or web address]: Olesya Sabaken on 05/03/18 4:45 pm * Is the patient Alert and Oriented? Yes * How many steps to enter\exit or inside your home? * PCP BRENDEN M[facility]NE[facility] * [facility] * Preadmission Environment Home with Family * ADLs Independent * Equipment Walker * List name and contact numbers for known caregivers / representatives who currently or will assist patient after discharge: NAZANIN [phone] * Verbal permission to speak to the caregivers and representatives has been obtained from the patient. Yes * Community resources currently utilized None * Additional services required to return to the preadmission environment? Yes * Can the patient safely return to the preadmission environment? Yes * Has this patient been hospitalized within the prior 30 days at any hospital? No Last DP export: 05/13/18 1:28 Patient Name: MAUREEN CANO Page 19592 at 1745 All edits/amendments must be made on the electronic document DICTATION DATE: 05/13/181744 SHEET TAILER: NATALIE 05/13/181744 RPT#: [id number] DC DATE:05/13/18 STATUS: DIS IN [facility] [address] [place] [address] END OF REPORT
--- NOTE | ~2018-05-01 | MORECARE ---
CASE MANAGEMENT DISCHARGE SUMMARY PATIENT: MAUREEN CANO UNIT: [id number] ADM DATE: 05/01/18 AGE: 87 : 30 SEX: F ROOM/BED: D.2218 AUTHOR: LEIGH STEWART PHYSICIAN: REFERRING PHYSICIAN: NAZANIN ARMENDARIZ MD DATE OF SERVICE: 05/13/18 Discharge Plan Patient Name: MAUREEN CANO Facility: [facility]:[place] : 1930 Planned Disposition: Home Anticipated Discharge Date: 05/13/18 Discharge Date: 05/13/2018 Expected LOS: 12 Initial Reviewer: [email or web address] Initial Review Date: 05/02/2018 Generated: 05/13/18 3:28 pm Comments DCP- Discharge Planning Updated by [email or web address]: Soo Kwon on 05/12/18 12:[address] Patient Name: MAUREEN CANO Admission Status: ER Accout number: [id number] Admission Date: 05-01-2018 : 1930 Admission Diagnosis:UNSPECIFIED ABDOMINAL PAIN Attending: NAZAINN ARMENDARIZ Current LOS: 11 Anticipated DC Date: Planned Disposition: Home Primary Insurance: MEDICARE A & B Discharge Planning Comments: CM SPOKE WITH MIKE WITH [facility] AND SHE CONFIRMED THAT PATIENT HAS BEEN ACCEPTED BY THEM. SHE STATES IF THE PATIENT IS DISCHARGE BEFORE 4PM TODAY TO CALL HER AT [phone] AND IF SHE IS DC'D AFTER 4PM TODAY CALL [phone] AND THEY WILL GET EVERYTHING SET UP AND MEET THE PATIENT AND FAMILY AT THE HOME. MD NOTE STATES THAT HOSPITAL BED AND OXYGEN WILL ARRIVE AT THE PATIENT'S HOME, HOSPICE SHOULD BE SETTING THAT UP. Cotton Baler: Soo Kwon DCP- Discharge Planning Updated by [email or web address]: Olesya Goins on 05/11/18 8:[address] [facility] HERE FOR EVALUATION, SPOKE WITH ISAAC (DAUGHTER) SHE STATED THAT THE PLAN WAS FOR HER MOTHER TO GO TO HER HOUSE TOMORROW AFTER DME WAS SET UP. CM WILL CONTINUE TO FOLLOW AND ASSIST WITH DC PLANNING NEEDS DCP- Discharge Planning Updated by [email or web address]: Olesya Goins on 05/11/18 7:[address] HOSPICE REFERRAL SENT TO [facility], I SPOKE WITH SAIDA THEY WILL COME UP AND EVALUATE PATIENT DCP- Discharge Planning Updated by [id number]: Olesya Goins on 05/10/18 1:[address] spoke with patient's daughter in length about what Hospice is and what hospice can do for her mother. She would like to set up a time for all of her siblings and MD to talk about it. She said her mother does not know that there is no plan for additional treatment for the cancer DCP- Discharge Planning Updated by [email or web address]: Olesya Goins on 05/03/18 4:[address] Patient Name: MAUREEN ACNO Admission Status: ER Accout number: [id number] Admission Date: 05-01-2018 : 1930 Admission Diagnosis:UNSPECIFIED ABDOMINAL PAIN Attending: NAZANIN ARMENDARIZ Current LOS: 2 Anticipated DC Date: Planned Disposition: Home Primary Insurance: MEDICARE A & B Discharge Planning Comments: CM met with patient to assess discharge planning needs. Patient stated that she lives in [place] and her adult son lives with her. She is independent with her care and uses a walker at home. She stated that there is 2 steps to enter in her home. She stated that either her daughter or son will be the one to drive her home at DC. I asked her about community resources and home health and rehab. She stated that she will think about it and she asked about meals on wheels. CM will continue to follow and assist with DC planning. Cotton Baler: Olesya Goins DCPIA - Discharge Planning Initial Assessment Updated by [email or web address]: Olesya Sabaken on 05/03/18 4:45 pm * Is the patient Alert and Oriented? Yes * How many steps to enter\exit or inside your home? * PCP BREND[facility] M[facility]NE[facility] * [facility] * Preadmission Environment Home with Family * ADLs Independent * Equipment Walker * List name and contact numbers for known caregivers / representatives who currently or will assist patient after discharge: NAZANIN [phone] * Verbal permission to speak to the caregivers and representatives has been obtained from the patient. Yes * Community resources currently utilized None * Additional services required to return to the preadmission environment? Yes * Can the patient safely return to the preadmission environment? Yes * Has this patient been hospitalized within the prior 30 days at any hospital? No Last DP export: 05/12/18 12:34 Patient Name: MAUREEN CANO Page 78440 at 1428 All edits/amendments must be made on the electronic document DICTATION DATE: 05/13/181426 CARRY ALL DRIVER: NATALIE 05/13/181426 RPT#: [id number] DC DATE:05/13/18 STATUS: DIS IN [facility] [address] [place] [address] END OF REPORT
--- NOTE | ~2018-05-01 | MORECARE ---
CASE MANAGEMENT DISCHARGE SUMMARY PATIENT: MAUREEN CANO UNIT: [id number] ADM DATE: 05/01/18 AGE: 87 : 30 SEX: F ROOM/BED: D.2218 AUTHOR: LEIGH STEWART PHYSICIAN: REFERRING PHYSICIAN: NAZANIN ARMENDARIZ MD DATE OF SERVICE: 05/14/18 Discharge Plan Patient Name: MAUREEN CANO Facility: [facility]:[place] : 1930 Planned Disposition: Home Anticipated Discharge Date: 05/13/18 Discharge Date: 05/13/2018 Expected LOS: 12 Initial Reviewer: [email or web address] Initial Review Date: 05/02/2018 Generated: 05/14/18 10:47 am Comments DCP- Discharge Planning Updated by [email or web address]: Linneareginald Mccarthy on 05/13/18 4:[address] LATE ENTRY 0950 PATIENT WAS NOT DISCHARGE 05/12/18 DUE TO LATENESS OF HOUR WITH ARRIVAL OF DME AND PATIENT REFUSAL TO HAVE AMBULANCE TRANSPORT.PATIENT WAS STILL ONSITE BY 1999. SON REPORTEDLY SAID IT WAS TOO LATE TO DISCHARGE BY THE TIME ALL ARRANGEMENTS COMPLETED. [facility] CALLED THIS AM BY PRIMARY NURSE AND MANAGER DELI. PORTABLE OXYGEN TANK REQUIRED FOR DISCHARGE BY PERSONAL CAR. PATIENT HAD DECLINED AMBULANCE. PRADEEP SPOKE WITH [facility]. SHE STATED JOHNNY WOULD CALL PROVIDER FOR DME AND HAVE PORTABLE OXYGEN DELIVERED TO THE PATIENT'S BEDSIDE. PRIMARY NURSE COMMUNICATED WITH THE PATIENT AND FAMILY. DCP- Discharge Planning Updated by [email or web address]: Soo Kwon on 05/12/18 12:[address] Patient Name: MAUREEN CANO Admission Status: ER Accout number: [id number] Admission Date: 05-01-2018 : 1930 Admission Diagnosis:UNSPECIFIED ABDOMINAL PAIN Attending: NAZANIN ARMENDARIZ Current LOS: 11 Anticipated DC Date: Planned Disposition: Home Primary Insurance: MEDICARE A & B Discharge Planning Comments: PRADEEP SPOKE WITH MIKE WITH [facility] AND SHE CONFIRMED THAT PATIENT HAS BEEN ACCEPTED BY THEM. SHE STATES IF THE PATIENT IS DISCHARGE BEFORE 4PM TODAY TO CALL HER AT [phone] AND IF SHE IS DC'D AFTER 4PM TODAY CALL [phone] AND THEY WILL GET EVERYTHING SET UP AND MEET THE PATIENT AND FAMILY AT THE HOME. MD NOTE STATES THAT HOSPITAL BED AND OXYGEN WILL ARRIVE AT THE PATIENT'S HOME, HOSPICE SHOULD BE SETTING THAT UP. It Sales Executive: Soo Kwon DCP- Discharge Planning Updated by [email or web address]: Olesya Goins on 05/11/18 8:[address] [facility] HERE FOR EVALUATION, SPOKE WITH ISAAC (DAUGHTER) SHE STATED THAT THE PLAN WAS FOR HER MOTHER TO GO TO HER HOUSE TOMORROW AFTER DME WAS SET UP. CM WILL CONTINUE TO FOLLOW AND ASSIST WITH DC PLANNING NEEDS DCP- Discharge Planning Updated by [id number]: Olesya Goins on 05/11/18 7:[address] HOSPICE REFERRAL SENT TO [facility], I SPOKE WITH SAIDA THEY WILL COME UP AND EVALUATE PATIENT DCP- Discharge Planning Updated by [email or web address]: Olesya Goins on 05/10/18 1:[address] spoke with patient's daughter in length about what Hospice is and what hospice can do for her mother. She would like to set up a time for all of her siblings and MD to talk about it. She said her mother does not know that there is no plan for additional treatment for the cancer DCP- Discharge Planning Updated by [email or web address]: Olesya Goins on 05/03/18 4:[address] Patient Name: MAUREEN CANO Admission Status: ER Accout number: [id number] Admission Date: 05-01-2018 : 1930 Admission Diagnosis:UNSPECIFIED ABDOMINAL PAIN Attending: NAZANIN ARMENDARIZ Current LOS: 2 Anticipated DC Date: Planned Disposition: Home Primary Insurance: MEDICARE A & B Discharge Planning Comments: CM met with patient to assess discharge planning needs. Patient stated that she lives in [place] and her adult son lives with her. She is independent with her care and uses a walker at home. She stated that there is 2 steps to enter in her home. She stated that either her daughter or son will be the one to drive her home at DC. I asked her about community resources and home health and rehab. She stated that she will think about it and she asked about meals on wheels. CM will continue to follow and assist with DC planning. It Sales Executive: Olesya Goins DCPIA - Discharge Planning Initial Assessment Updated by [email or web address]: Olesya Goins on 05/03/18 4:45 pm * Is the patient Alert and Oriented? Yes * How many steps to enter\exit or inside your home? * PCP [facility] * [facility] * Preadmission Environment Home with Family * ADLs Independent * Equipment Walker * List name and contact numbers for known caregivers / representatives who currently or will assist patient after discharge: NAZANIN [phone] * Verbal permission to speak to the caregivers and representatives has been obtained from the patient. Yes * Community resources currently utilized None * Additional services required to return to the preadmission environment? Yes * Can the patient safely return to the preadmission environment? Yes * Has this patient been hospitalized within the prior 30 days at any hospital? No Last DP export: 05/13/18 4:52 Patient Name: MAUREEN CANO Page 08564 at 0947 All edits/amendments must be made on the electronic document DICTATION DATE: 05/14/18946 DRIVER'S LICENSE REVIEWING OFFICER: NATALIE 05/14/18946 RPT#: [id number] DC DATE:05/13/18 STATUS: DIS IN [facility] [address] [place] [address] END OF REPORT
--- NOTE | ~2018-05-01 | HEMODYNAMI ---
PATIENT:MAUREEN CANO MEDICAL RECORD: [id number] : [birth year] LOCATION:[facility] D.2218 ADMISSION DATE: 05/01/18 Generatedon:05/04/201817:40 Patient name: MAUREEN CANO Patient #: [id number] SSN: : 1930 Date of study: 05/04/2018 Page: Of Hemodynamic Procedure Report Patient Data Patient Demographics Procedure consent was obtained First Name: MAUREEN Gender: Female Last Name: RACHAEL : 1930 [facility] Initial: David Age: 87 year(s) Patient #: [id number] Race: Unknown Additional ID: [id number] Contact details [address]: [address] [place] [address] State: [place] City: [place] Zip code: [address] Admission Admission Data Admission Date: 05/01/2018 Admission Time: 23:38 Room #: .2218 Height (in.): 64 BSA: 1.68 (m2) Height (cm.): 162.56 BMI: 24.03 (kg/m2) Weight (lbs.): 140 Weight (kg.): 63.5 Procedure Procedure Types Cath Procedure Peripheral Cath Diagnostic Procedure Cabinet Maker Peripheral Procedures Procedure Description Procedure Date Procedure Date: 05/04/2018 Procedure Start Time: 17:32 Procedure Staff Name Function Terrance Gustafson MD Performing Physician Arianna Ramos RT Livestock Broker Deidra Banerjee RN Nurse Brando Muhammad RT Scrub Procedure Data Cath Procedure Fluoroscopy Diagnostic fluoroscopy Total fluoroscopy Time: 0.1 time: 0.1 min min Diagnostic fluoroscopy Total fluoroscopy dose: 1 dose: 1 mGy mGy Hemodynamics Rest BSA: 1.68 (m2) O2 Consumption: Estimated: 228.48 (ml/min) O2 Consumption indexed : Estimated:136 (ml/min/m) Pre Cath Intra NCS Post Cath Procedure Log Time Note 17:23:41 Patient Weight : 140 lbs 17:23:45 Patient Height : 64 inches 17:23:51 Time tracking: Stay late (Procedures after 5:00pm) 17:30:57 Signed procedure consent form obtained from patient. 17:31:12 Right Arm area was prepped with chlora-prep and draped in sterile fashion 17:31:15 Physician arrived 17:31:17 --------ALL STOP TIME OUT------ 17:31:17 Final Timeout: patient, procedure, and site verified with staff and physician. All members of the team are in agreement. 17:31:36 Use device set IR Diagnostic 17:31:38 Sterile Angiographic Pack opened to sterile field. 17:31:38 Bag Decanter () opened to sterile field. 17:31:46 PowerPICC 5Fr double lumen catheter opened to sterile field. 17:31:52 SHIELD Sorbaview ([id number]) opened to sterile field. 17:31:58 SUTURE ETHILON 2-0 BLK MONO FS opened to sterile field. 17:32:08 Procedure started. 17:32:08 Full Disclosure recording started 17:32:13 Local anesthetic to right arm with Lidocaine 1% by Terrance Gustafson MD.INITIAL ACCESS ONLY 17:32:16 PICC 17:37:29 Venous access obtained using ultrasound guidance. 17:37:32 PICC line was trimmed to 43cm and advanced to the superior vena cava.Position verified under fluoroscopy. 17:39:10 Procedure ended.(Physican Out) 17:39:21 Fluoroscopy time 00.10 minutes. 17:39:23 Fluoroscopy dose: 1 mGy 17:39:23 Flurop Dose total: 1 17:39:24 Procedure and supply charges have been captured, reviewed, submitted and are correct. Device Usage Item Name Manufacture Quantity Catalog Hospital Part Current Minimal Lot# / Number Charge Number Stock Stock Serial# Code Sterile [place] 1 [id number] 5 Angiographic Health Pack Bag Decanter Microtek 1 [id number] 5 () [employer] PowerPICC [place] 1 [id number] [id number] 5 5Fr double lumen catheter SHIELD [employer] 1 [id number] [id number] 5 Sorbaview ([id number]) SUTURE Ethicon 1 [id number] 5 ETHILON 2-0 BLK MONO FS Signature Audit De[place] Stage Time Signature Unsigned Intra-Procedure 05/04/2018 Arianna Ramos 5:40:13 PM RT(R) [facility] [address] [place] [address]
--- NOTE | ~2018-05-01 | MORECARE ---
CASE MANAGEMENT DISCHARGE SUMMARY PATIENT: MAUREEN CANO UNIT: [id number] ADM DATE: 05/01/18 AGE: 87 : 30 SEX: F ROOM/BED: D.2218 AUTHOR: LEIGH STEWART PHYSICIAN: REFERRING PHYSICIAN: NAZANIN ARMENDARIZ MD DATE OF SERVICE: 05/11/18 Discharge Plan Patient Name: MAUREEN CANO Facility: [facility]:[place] : 1930 Planned Disposition: Home Anticipated Discharge Date: Discharge Date: Expected LOS: Initial Reviewer: [id number] Initial Review Date: 05/02/2018 Generated: 05/11/18 10:53 am Comments DCP- Discharge Planning Updated by [email or web address]: Olesya Goins on 05/11/18 8:[address] [facility] HERE FOR [facility]ALUATION, SPOKE WITH ISAAC (DAUGHTER) SHE STATED THAT THE PLAN WAS FOR HER MOTHER TO GO TO HER HOUSE TOMORROW AFTER DME WAS SET UP. CM WILL CONTINUE TO FOLLOW AND ASSIST WITH DC PLANNING NEEDS DCP- Discharge Planning Updated by [email or web address]: Olesya Goins on 05/11/18 7:[address] HOSPICE REFERRAL SENT TO [facility], I SPOKE WITH SAIDA THEY WILL COME UP AND EVALUATE PATIENT DCP- Discharge Planning Updated by [email or web address]: Olesya Goins on 05/10/18 1:[address] spoke with patient's daughter in length about what Hospice is and what hospice can do for her mother. She would like to set up a time for all of her siblings and MD to talk about it. She said her mother does not know that there is no plan for additional treatment for the cancer DCP- Discharge Planning Updated by [email or web address]: Olesya Goins on 05/03/18 4:[address] Patient Name: MAUREEN CANO Admission Status: ER Accout number: [id number] Admission Date: 05-01-2018 : 1930 Admission Diagnosis:UNSPECIFIED ABDOMINAL PAIN Attending: NAZANIN ARMENDARIZ Current LOS: 2 Anticipated DC Date: Planned Disposition: Home Primary Insurance: MEDICARE A & B Discharge Planning Comments: CM met with patient to assess discharge planning needs. Patient stated that she lives in [place] and her adult son lives with her. She is independent with her care and uses a walker at home. She stated that there is 2 steps to enter in her home. She stated that either her daughter or son will be the one to drive her home at DC. I asked her about community resources and home health and rehab. She stated that she will think about it and she asked about meals on wheels. CM will continue to follow and assist with DC planning. Acetylene Operator: Olesya Goins DCPIA - Discharge Planning Initial Assessment Updated by [id number]: Olesya Goins on 05/03/18 4:45 pm * Is the patient Alert and Oriented? Yes * How many steps to enter\exit or inside your home? * PCP BRENDEN [facility]ARTÍNEZ * Pharmacy [facility] * Preadmission Environment Home with Family * ADLs Independent * Equipment Walker * List name and contact numbers for known caregivers / representatives who currently or will assist patient after discharge: NAZANIN [phone] * Verbal permission to speak to the caregivers and representatives has been obtained from the patient. Yes * Community resources currently utilized None * Additional services required to return to the preadmission environment? Yes * Can the patient safely return to the preadmission environment? Yes * Has this patient been hospitalized within the prior 30 days at any hospital? No Last DP export: 05/11/18 8:02 a Patient Name: MAUREEN CANO Page 13703 at 0954 All edits/amendments must be made on the electronic document DICTATION DATE: 05/11/18952 ROVING DEPARTMENT SUPERVISOR: NATALIE 05/11/18952 RPT#: [id number] DC DATE: STATUS: ADM IN [facility] [address] [facility] [place] [address] END OF REPORT
--- NOTE | ~2018-05-01 | MORECARE ---
CASE MANAGEMENT DISCHARGE SUMMARY PATIENT: MAUREEN CANO UNIT: [id number] ADM DATE: 05/01/18 AGE: 87 : 30 SEX: F ROOM/BED: D.2218 AUTHOR: LEIGH STEWART PHYSICIAN: REFERRING PHYSICIAN: NAZANIN ARMENDARIZ MD DATE OF SERVICE: 05/11/18 Discharge Plan Patient Name: MAUREEN CANO Facility: [facility]:[place] : 1930 Planned Disposition: Home Anticipated Discharge Date: Discharge Date: Expected LOS: Initial Reviewer: [email or web address] Initial Review Date: 05/02/2018 Generated: 05/11/18 9:49 am Comments DCP- Discharge Planning Updated by [email or web address]: Olesya Goins on 05/10/18 1:[address] spoke with patient's daughter in length about what Hospice is and what hospice can do for her mother. She would like to set up a time for all of her siblings and MD to talk about it. She said her mother does not know that there is no plan for additional treatment for the cancer DCP- Discharge Planning Updated by [email or web address]: Olesya Goins on 05/03/18 4:[address] Patient Name: MAUREEN CANO Admission Status: ER Accout number: [id number] Admission Date: 05-01-2018 : 1930 Admission Diagnosis:UNSPECIFIED ABDOMINAL PAIN Attending: NAZANIN ARMENDARIZ Current LOS: 2 Anticipated DC Date: Planned Disposition: Home Primary Insurance: MEDICARE A & B Discharge Planning Comments: CM met with patient to assess discharge planning needs. Patient stated that she lives in [place] and her adult son lives with her. She is independent with her care and uses a walker at home. She stated that there is 2 steps to enter in her home. She stated that either her daughter or son will be the one to drive her home at DC. I asked her about community resources and home health and rehab. She stated that she will think about it and she asked about meals on wheels. CM will continue to follow and assist with DC planning. Senior Project Manager: Olesya Goins DCPIA - Discharge Planning Initial Assessment Updated by [email or web address]: Olesya Goins on 05/03/18 4:45 pm * Is the patient Alert and Oriented? Yes * How many steps to enter\exit or inside your home? * PCP BR[facility] * [facility] * Preadmission Environment Home with Family * ADLs Independent * Equipment Walker * List name and contact numbers for known caregivers / representatives who currently or will assist patient after discharge: NAZANIN [phone] * Verbal permission to speak to the caregivers and representatives has been obtained from the patient. Yes * Community resources currently utilized None * Additional services required to return to the preadmission environment? Yes * Can the patient safely return to the preadmission environment? Yes * Has this patient been hospitalized within the prior 30 days at any hospital? No Last DP export: 05/10/18 1:31 p Patient Name: MAUREEN CANO Page 20034 at 0849 All edits/amendments must be made on the electronic document DICTATION DATE: 05/11/18847 WINDMILL TECHNICIAN: NATALIE 05/11/18847 RPT#: [id number] DC DATE: STATUS: ADM IN [facility] [address] [place] [address] END OF REPORT
--- NOTE | ~2018-05-01 | MORECARE ---
CASE MANAGEMENT DISCHARGE SUMMARY PATIENT: MAUREEN CANO UNIT: [id number] ADM DATE: 05/01/18 AGE: 87 : 30 SEX: F ROOM/BED: D.2218 AUTHOR: LEIGH STEWART PHYSICIAN: REFERRING PHYSICIAN: NAZANIN ARMENDARIZ MD DATE OF SERVICE: 05/11/18 Discharge Plan Patient Name: MAUREEN CANO Facility: [facility]:[place] : 1930 Planned Disposition: Home Anticipated Discharge Date: Discharge Date: Expected LOS: Initial Reviewer: [email or web address] Initial Review Date: 05/02/2018 Generated: 05/11/18 10:02 am Comments DCP- Discharge Planning Updated by [email or web address]: Olesya Goins on 05/11/18 7:[address] HOSPICE REFERRAL SENT TO [facility], I SPOKE WITH SAIDA THEY WILL COME UP AND EVALUATE PATIENT DCP- Discharge Planning Updated by [email or web address]: Olesya Goins on 05/10/18 1:[address] spoke with patient's daughter in length about what Hospice is and what hospice can do for her mother. She would like to set up a time for all of her siblings and MD to talk about it. She said her mother does not know that there is no plan for additional treatment for the cancer DCP- Discharge Planning Updated by [email or web address]: Olesya Goins on 05/03/18 4:[address] Patient Name: MAUREEN CANO Admission Status: ER Accout number: [id number] Admission Date: 05-01-2018 : 1930 Admission Diagnosis:UNSPECIFIED ABDOMINAL PAIN Attending: NAZANIN ARMENDARIZ Current LOS: 2 Anticipated DC Date: Planned Disposition: Home Primary Insurance: MEDICARE A & B Discharge Planning Comments: CM met with patient to assess discharge planning needs. Patient stated that she lives in [place] and her adult son lives with her. She is independent with her care and uses a walker at home. She stated that there is 2 steps to enter in her home. She stated that either her daughter or son will be the one to drive her home at DC. I asked her about community resources and home health and rehab. She stated that she will think about it and she asked about meals on wheels. CM will continue to follow and assist with DC planning. Experimental Assembler: Olesya Goins DCPIA - Discharge Planning Initial Assessment Updated by [email or web address]: Olesya Goins on 05/03/18 4:45 pm * Is the patient Alert and Oriented? Yes * How many steps to enter\exit or inside your home? * PCP [facility] * [facility] * Preadmission Environment Home with Family * ADLs Independent * Equipment Walker * List name and contact numbers for known caregivers / representatives who currently or will assist patient after discharge: NAZANIN [phone] * Verbal permission to speak to the caregivers and representatives has been obtained from the patient. Yes * Community resources currently utilized None * Additional services required to return to the preadmission environment? Yes * Can the patient safely return to the preadmission environment? Yes * Has this patient been hospitalized within the prior 30 days at any hospital? No External Providers External Provider: [facility] Next Contact Date: Service Request Date: Service Type: Resolution: Reviewer: Comments: Last DP export: 05/11/18 7:49 a Patient Name: MAUREEN CANO Page 98966 at 0902 All edits/amendments must be made on the electronic document DICTATION DATE: 05/11/18900 B OPERATOR: NATALIE 05/11/18900 RPT#: [id number] DC DATE: STATUS: ADM IN [facility] [address] [place] [address] END OF REPORT
--- NOTE | ~2018-05-01 | MORECARE ---
CASE MANAGEMENT DISCHARGE SUMMARY PATIENT: MAUREEN CANO UNIT: [id number] ADM DATE: 05/01/18 AGE: 87 : 30 SEX: F ROOM/BED: D.2218 AUTHOR: LEIGH STEWART PHYSICIAN: REFERRING PHYSICIAN: NAZANIN ARMENDARIZ MD DATE OF SERVICE: 05/10/18 Discharge Plan Patient Name: MAUREEN CANO Facility: [facility]:[place] : 1930 Planned Disposition: Home Anticipated Discharge Date: Discharge Date: Expected LOS: Initial Reviewer: [email or web address] Initial Review Date: 05/02/2018 Generated: 05/10/18 3:31 pm Comments DCP- Discharge Planning Updated by [email or web address]: Olesya Goins on 05/10/18 1:[address] spoke with patient's daughter in length about what Hospice is and what hospice can do for her mother. She would like to set up a time for all of her siblings and MD to talk about it. She said her mother does not know that there is no plan for additional treatment for the cancer DCP- Discharge Planning Updated by [email or web address]: Olesya Goins on 05/03/18 4:[address] Patient Name: MAUREEN CANO Admission Status: ER Accout number: [id number] Admission Date: 05-01-2018 : 1930 Admission Diagnosis:UNSPECIFIED ABDOMINAL PAIN Attending: NAZANIN ARMENDARIZ Current LOS: 2 Anticipated DC Date: Planned Disposition: Home Primary Insurance: MEDICARE A & B Discharge Planning Comments: CM met with patient to assess discharge planning needs. Patient stated that she lives in [place] and her adult son lives with her. She is independent with her care and uses a walker at home. She stated that there is 2 steps to enter in her home. She stated that either her daughter or son will be the one to drive her home at DC. I asked her about community resources and home health and rehab. She stated that she will think about it and she asked about meals on wheels. CM will continue to follow and assist with DC planning. Fly Raiser Lockstitch: Olesya Goins DCPIA - Discharge Planning Initial Assessment Updated by [email or web address]: Olesya Goins on 05/03/18 4:45 pm * Is the patient Alert and Oriented? Yes * How many steps to enter\exit or inside your home? * PCP BREND[facility]ÍNE[facility] * [facility] * Preadmission Environment Home with Family * ADLs Independent * Equipment Walker * List name and contact numbers for known caregivers / representatives who currently or will assist patient after discharge: NAZANIN [phone] * Verbal permission to speak to the caregivers and representatives has been obtained from the patient. Yes * Community resources currently utilized None * Additional services required to return to the preadmission environment? Yes * Can the patient safely return to the preadmission environment? Yes * Has this patient been hospitalized within the prior 30 days at any hospital? No Last DP export: 05/03/18 5:01 p Patient Name: MAUREEN CANO Page 48506 at 1431 All edits/amendments must be made on the electronic document DICTATION DATE: 05/10/18 143 AIRCREWMAN: NATALIE 05/10/18 1431 RPT#: [id number] DC DATE: STATUS: ADM IN [facility] [address] [place] [address] END OF REPORT
--- NOTE | ~2018-05-01 | MORECARE ---
CASE MANAGEMENT DISCHARGE SUMMARY PATIENT: MAUREEN CANO UNIT: [id number] ADM DATE: 05/01/18 AGE: 87 : 30 SEX: F ROOM/BED: D.2218 AUTHOR: LEIGH STEWART PHYSICIAN: REFERRING PHYSICIAN: NAZANIN ARMENDARIZ MD DATE OF SERVICE: 05/03/18 Discharge Plan Patient Name: MAUREEN CANO [facility] [facility] 1930 Planned Disposition: Home Anticipated Discharge Date: Discharge Date: Expected LOS: Initial Reviewer: [email or web address] Initial Review Date: 05/02/2018 Generated: 05/03/18 5:47 pm DCPIA - Discharge Planning Initial Assessment Updated by [email or web address]: Olesya Goins on 05/03/18 4:45 pm * Is the patient Alert and Oriented? Yes * How many steps to enter\exit or inside your home? * PCP [facility]NE[facility] * [facility] * Preadmission Environment Home with Family * ADLs Independent * Equipment Walker * List name and contact numbers for known caregivers / representatives who currently or will assist patient after discharge: NAZANIN [phone] * Verbal permission to speak to the caregivers and representatives has been obtained from the patient. Yes * Community resources currently utilized None * Additional services required to return to the preadmission environment? Yes * Can the patient safely return to the preadmission environment? Yes * Has this patient been hospitalized within the prior 30 days at any hospital? No Patient Name: MAUREEN CANO Page 79703 at 1647 All edits/amendments must be made on the electronic document DICTATION DATE: 05/03/181645 CONCRETE PILE DRIVER OPERATOR: NATALIE 05/03/181645 RPT#: [id number] DC DATE: STATUS: ADM IN [facility] [address] [place] [address] END OF REPORT
--- NOTE | ~2018-05-01 | MORECARE ---
CASE MANAGEMENT DISCHARGE SUMMARY PATIENT: MAUREEN CANO UNIT: [id number] ADM DATE: 05/01/18 AGE: 87 : 30 SEX: F ROOM/BED: D.2218 AUTHOR: LEIGH STEWART PHYSICIAN: REFERRING PHYSICIAN: NAZANIN ARMENDARIZ MD DATE OF SERVICE: 05/03/18 Discharge Plan Patient Name: MAUREEN CANO Facility: [facility]:[place] : 1930 Planned Disposition: Home Anticipated Discharge Date: Discharge Date: Expected LOS: Initial Reviewer: [id number] Initial Review Date: 05/02/2018 Generated: 05/03/18 6:01 pm Comments DCP- Discharge Planning Updated by [email or web address]: Olesya Goins on 05/03/18 3:[address] Patient Name: MAUREEN CANO Admission Status: ER Accout number: [id number] Admission Date: 05-01-2018 : 1930 Admission Diagnosis:UNSPECIFIED ABDOMINAL PAIN Attending: NAZANIN ARMENDARIZ Current LOS: 2 Anticipated DC Date: Planned Disposition: Home Primary Insurance: MEDICARE A & B Discharge Planning Comments: CM met with patient to assess discharge planning needs. Patient stated that she lives in [place] and her adult son lives with her. She is independent with her care and uses a walker at home. She stated that there is 2 steps to enter in her home. She stated that either her daughter or son will be the one to drive her home at DC. I asked her about community resources and home health and rehab. She stated that she will think about it and she asked about meals on wheels. CM will continue to follow and assist with DC planning. Legal Support Specialist: Olesya Goins DCPIA - Discharge Planning Initial Assessment Updated by [email or web address]: Olesya Goins on 05/03/18 4:45 pm * Is the patient Alert and Oriented? Yes * How many steps to enter\exit or inside your home? * PCP BRENDEN [facility]NE[facility] * [facility] * Preadmission Environment Home with Family * ADLs Independent * Equipment Walker * List name and contact numbers for known caregivers / representatives who currently or will assist patient after discharge: NAZANIN [phone] * Verbal permission to speak to the caregivers and representatives has been obtained from the patient. Yes * Community resources currently utilized None * Additional services required to return to the preadmission environment? Yes * Can the patient safely return to the preadmission environment? Yes * Has this patient been hospitalized within the prior 30 days at any hospital? No Last DP export: 05/03/18 3:47 p Patient Name: MAUREEN CANO Page 18603 at 1701 All edits/amendments must be made on the electronic document DICTATION DATE: 05/03/181699 TOLL OPERATOR: NATALIE 05/03/181699 RPT#: [id number] DC DATE: STATUS: ADM IN [facility] [address] [place] [address] END OF REPORT
--- NOTE | ~2018-05-01 | MORECARE ---
CASE MANAGEMENT DISCHARGE SUMMARY PATIENT: MAUREEN CANO UNIT: [id number] ADM DATE: 05/01/18 AGE: 87 : 30 SEX: F ROOM/BED: D.2218 AUTHOR: LEIGH STEWART PHYSICIAN: REFERRING PHYSICIAN: NAZANIN ARMENDARIZ MD DATE OF SERVICE: 05/13/18 Discharge Plan Patient Name: MAUREEN CANO Facility: [facility]:[place] : 1930 Planned Disposition: Home Anticipated Discharge Date: 05/13/18 Discharge Date: 05/13/2018 Expected LOS: 12 Initial Reviewer: [email or web address] Initial Review Date: 05/02/2018 Generated: 05/13/18 6:52 pm Comments DCP- Discharge Planning Updated by [email or web address]: Linneareginald Mccarthy on 05/13/18 4:[address] LATE ENTRY 0950 PATIENT WAS NOT DISCHARGE 05/12/18 DUE TO LATENESS OF HOUR WITH ARRIVAL OF DME AND PATIENT REFUSAL TO HAVE AMBULANCE TRANSPORT.PATIENT WAS STILL ONSITE BY 1999. SON REPORTEDLY SAID IT WAS TOO LATE TO DISCHARGE BY THE TIME ALL ARRANGEMENTS COMPLETED. [facility] CALLED THIS AM BY PRIMARY NURSE AND HORTICULTURAL FARMWORKER. PORTABLE OXYGEN TANK REQUIRED FOR DISCHARGE BY PERSONAL CAR. PATIENT HAD DECLINED AMBULANCE. PRADEEP SPOKE WITH [facility]. SHE STATED [facility] WOULD CALL PROVIDER FOR DME AND HAVE PORTABLE OXYGEN DELIVERED TO THE PATIENT'S BEDSIDE. PRIMARY NURSE COMMUNICATED WITH THE PATIENT AND FAMILY. DCP- Discharge Planning Updated by [email or web address]: Soo Kwon on 05/12/18 12:[address] Patient Name: MAUREEN CANO Admission Status: ER Accout number: [id number] Admission Date: 05-01-2018 : 1930 Admission Diagnosis:UNSPECIFIED ABDOMINAL PAIN Attending: NAZANIN ARMENDARIZ Current LOS: 11 Anticipated DC Date: Planned Disposition: Home Primary Insurance: MEDICARE A & B Discharge Planning Comments: PRADEEP SPOKE WITH MIKE WITH [facility] AND SHE CONFIRMED THAT PATIENT HAS BEEN ACCEPTED BY THEM. SHE STATES IF THE PATIENT IS DISCHARGE BEFORE 4PM TODAY TO CALL HER AT [phone] AND IF SHE IS DC'D AFTER 4PM TODAY CALL [phone] AND THEY WILL GET EVERYTHING SET UP AND MEET THE PATIENT AND FAMILY AT THE HOME. MD NOTE STATES THAT HOSPITAL BED AND OXYGEN WILL ARRIVE AT THE PATIENT'S HOME, HOSPICE SHOULD BE SETTING THAT UP. Postal Transportation Clerk: Soo Kwon DCP- Discharge Planning Updated by [email or web address]: Olesya Goins on 05/11/18 8:[address] [facility] HERE FOR EVALUATION, SPOKE WITH ISAAC (DAUGHTER) SHE STATED THAT THE PLAN WAS FOR HER MOTHER TO GO TO HER HOUSE TOMORROW AFTER DME WAS SET UP. CM WILL CONTINUE TO FOLLOW AND ASSIST WITH DC PLANNING NEEDS DCP- Discharge Planning Updated by [id number]: Olesya Goins on 05/11/18 7:[address] HOSPICE REFERRAL SENT TO [facility], I SPOKE WITH SAIDA THEY WILL COME UP AND EVALUATE PATIENT DCP- Discharge Planning Updated by [email or web address]: Olesya Goins on 05/10/18 1:[address] spoke with patient's daughter in length about what Hospice is and what hospice can do for her mother. She would like to set up a time for all of her siblings and MD to talk about it. She said her mother does not know that there is no plan for additional treatment for the cancer DCP- Discharge Planning Updated by [id number]: Olesya Goins on 05/03/18 4:[address] Patient Name: MAUREEN CANO Admission Status: ER Accout number: [id number] Admission Date: 05-01-2018 : 1930 Admission Diagnosis:UNSPECIFIED ABDOMINAL PAIN Attending: NAZANIN ARMENDARIZ Current LOS: 2 Anticipated DC Date: Planned Disposition: Home Primary Insurance: MEDICARE A & B Discharge Planning Comments: CM met with patient to assess discharge planning needs. Patient stated that she lives in [place] and her adult son lives with her. She is independent with her care and uses a walker at home. She stated that there is 2 steps to enter in her home. She stated that either her daughter or son will be the one to drive her home at DC. I asked her about community resources and home health and rehab. She stated that she will think about it and she asked about meals on wheels. CM will continue to follow and assist with DC planning. Postal Transportation Clerk: Olesya Goins DCPIA - Discharge Planning Initial Assessment Updated by [email or web address]: Olesya Goins on 05/03/18 4:45 pm * Is the patient Alert and Oriented? Yes * How many steps to enter\exit or inside your home? * PCP [facility] * [facility] * Preadmission Environment Home with Family * ADLs Independent * Equipment Walker * List name and contact numbers for known caregivers / representatives who currently or will assist patient after discharge: NAZANIN [phone] * Verbal permission to speak to the caregivers and representatives has been obtained from the patient. Yes * Community resources currently utilized None * Additional services required to return to the preadmission environment? Yes * Can the patient safely return to the preadmission environment? Yes * Has this patient been hospitalized within the prior 30 days at any hospital? No Last DP export: 05/13/18 4:45 Patient Name: MAUREEN CANO Page 49741 at 1752 All edits/amendments must be made on the electronic document DICTATION DATE: 05/13/181751 FORENSIC MATERIALS ENGINEER: NATALIE 05/13/181751 RPT#: [id number] DC DATE:05/13/18 STATUS: DIS IN [facility] [address] [place] [address] END OF REPORT
[~2018-05-01 16:43] MED LIST: ALENDRONATE SOD70 MG PO; CYCLOBENZAPRINE10 MG PO; DIFLUCAN150 MG PO; HYDROCODON-ACE1 EAC7 PO; LOPID600 MG PO; LOTREL 10-40 M1 EACH; MAXZIDE 75/501 TAB PO; MOBIC7.5 MG PO; NORVASC10 MG PO; OMEPRAZOLE20 M1 PO; SINGULAIR10 MG PO; UNITHROID88 MCG PO
[2018-05-01] MEDS ORDERED: NORVASC10 MG PO (16:51)
[2018-05-01] MEDS ORDERED: SINGULAIR10 MG PO (16:51)
[2018-05-01 17:29] LABS: BASOPHILS 0.1 % (0-2); EOSINOPHILS 0.3 % (0-7); HEMATOCRIT 28.4 % (36.0-48.0); HEMOGLOBIN 9.5 g/dL (12-16); IMMATURE GRANULOCYTES 0.4 % (0-5); LYMPHOCYTES 4.9 % (15-50); MCH 29.6 pg (26.0-34.0); MCHC 33.5 g/dL (31.0-37.0); MCV 88.5 fL (80.0-100.0); MEAN PLATELET VOLUME 9.8 fL (7.4-10.4); MONOCYTES 10.7 % (2-11); NEUTROPHILS 83.6 % (40-80); PLATELET COUNT 221 10x3/uL (130-400); RBC 3.21 10x6/uL (4.00-5.40); RDW 13.2 % (11.5-14.5); WBC 11.9 10x3/uL (4.8-10.8)
[2018-05-01 17:56] LABS: ALBUMIN 3.2 g/dL (3.4-5.0); ALKALINE PHOSPHATASE 76 U/L (46-116); ALT (SGPT) 39 U/L (10-68); AMYLASE - SERUM 53 U/L (25-115); BILIRUBIN - TOTAL 0.61 mg/dL (0.2-1.3); CALC OSMOLALITY 277 mosm/kg (275-300); CALCIUM 8.7 mg/dL (8.5-10.1); CARBON DIOXIDE 27.6 mmol/L (21.0-32.0); CHLORIDE - SERUM 100 mmol/L (98-107); CREATININE - SERUM 0.9 mg/dL (0.6-1.3); GLUCOSE 115 mg/dL (74-106); LIPASE 153 U/L (73-393); POTASSIUM - SERUM 3.5 mmol/L (3.5-5.1); PROTEIN - SERUM 6.8 g/dL (6.4-8.2); SODIUM 138 mmol/L (136-145); UREA NITROGEN 14 mg/dL (7-18); eGFR NON AFRICAN AMERICAN 63 mL/min (90-120)
[2018-05-01 17:58] LABS: TROPONIN-I < 0.017 ng/mL (0.000-0.060)
[2018-05-01 19:41] LABS: APPEARANCE CLEAR (CLEAR); BILIRUBIN NEGATIVE (NEGATIVE); COLOR YELLOW (YELLOW); GLUCOSE NEGATIVE (NEGATIVE); KETONE NEGATIVE (NEGATIVE); NITRITE NEGATIVE (NEGATIVE); PROTEIN TRACE mg/dL (NEGATIVE); UROBILINOGEN NORMAL (NORMAL)
[2018-05-01 23:47] VITALS: BP 116/53
[2018-05-02] VITALS (7 sets, daily range): BP systolic 122–157; BP diastolic 46–80; Ht 162.6 cm; Wt 72.9 kg
[2018-05-02 06:03] LABS: BASOPHILS 0.1 % (0-2); EOSINOPHILS 0.9 % (0-7); HEMATOCRIT 26.8 % (36.0-48.0); HEMOGLOBIN 8.9 g/dL (12-16); IMMATURE GRANULOCYTES 0.4 % (0-5); LYMPHOCYTES 6.5 % (15-50); MCH 29.3 pg (26.0-34.0); MCHC 33.2 g/dL (31.0-37.0); MCV 88.2 fL (80.0-100.0); MEAN PLATELET VOLUME 9.6 fL (7.4-10.4); MONOCYTES 12.3 % (2-11); NEUTROPHILS 79.8 % (40-80); RBC 3.04 10x6/uL (4.00-5.40); RDW 13.3 % (11.5-14.5)
[2018-05-02 06:08] LABS: PLATELET COUNT 164 10x3/uL (130-400); WBC 7.9 10x3/uL (4.8-10.8)
[2018-05-02 06:23] LABS: ALBUMIN 2.4 g/dL (3.4-5.0); ANION GAP 9.2 mmol/L (8-16); BILIRUBIN - TOTAL 0.49 mg/dL (0.2-1.3); CALCIUM 7.4 mg/dL (8.5-10.1); CARBON DIOXIDE 29.2 mmol/L (21.0-32.0); CREATININE - SERUM 0.8 mg/dL (0.6-1.3); POTASSIUM - SERUM 3.4 mmol/L (3.5-5.1); PROTEIN - SERUM 5.5 g/dL (6.4-8.2)
[2018-05-03 04:58] VITALS: BP 139/59
[2018-05-03 06:03] LABS: BASOPHILS 0 % (0-2); EOSINOPHILS 1.1 % (0-7); HEMATOCRIT 24.8 % (36.0-48.0); HEMOGLOBIN 8.1 g/dL (12-16); IMMATURE GRANULOCYTES 0.5 % (0-5); LYMPHOCYTES 7.8 % (15-50); MCH 29.1 pg (26.0-34.0); MCHC 32.7 g/dL (31.0-37.0); MCV 89.2 fL (80.0-100.0); MEAN PLATELET VOLUME 9.9 fL (7.4-10.4); MONOCYTES 10.3 % (2-11); NEUTROPHILS 80.3 % (40-80); PLATELET COUNT 164 10x3/uL (130-400); RBC 2.78 10x6/uL (4.00-5.40); RDW 13.3 % (11.5-14.5); WBC 6.4 10x3/uL (4.8-10.8)
[2018-05-03 06:39] LABS: ALBUMIN 2.1 g/dL (3.4-5.0); ANION GAP 10.3 mmol/L (8-16); BILIRUBIN - TOTAL 0.38 mg/dL (0.2-1.3); CALCIUM 7.3 mg/dL (8.5-10.1); CREATININE - SERUM 0.8 mg/dL (0.6-1.3); POTASSIUM - SERUM 3.3 mmol/L (3.5-5.1); PROTEIN - SERUM 5.1 g/dL (6.4-8.2)
[2018-05-03 11:00] VITALS: BP 136/51
[2018-05-03 21:26] VITALS: BP 152/51
[2018-05-04 05:11] VITALS: BP 140/54
[2018-05-04 06:26] LABS: BASOPHILS 0.1 % (0-2); EOSINOPHILS 1.2 % (0-7); HEMATOCRIT 25.5 % (36.0-48.0); HEMOGLOBIN 8.4 g/dL (12-16); IMMATURE GRANULOCYTES 0.4 % (0-5); LYMPHOCYTES 7.4 % (15-50); MCH 29.1 pg (26.0-34.0); MCHC 32.9 g/dL (31.0-37.0); MCV 88.2 fL (80.0-100.0); MEAN PLATELET VOLUME 9.6 fL (7.4-10.4); MONOCYTES 9.3 % (2-11); NEUTROPHILS 81.6 % (40-80); PLATELET COUNT 183 10x3/uL (130-400); RBC 2.89 10x6/uL (4.00-5.40); RDW 13.2 % (11.5-14.5); WBC 7.2 10x3/uL (4.8-10.8)
[2018-05-04 06:32] LABS: ALBUMIN 2.2 g/dL (3.4-5.0); ALKALINE PHOSPHATASE 76 U/L (46-116); ALT (SGPT) 20 U/L (10-68); BILIRUBIN - TOTAL 0.37 mg/dL (0.2-1.3); CALC OSMOLALITY 282 mosm/kg (275-300); CALCIUM 7.7 mg/dL (8.5-10.1); CARBON DIOXIDE 26.2 mmol/L (21.0-32.0); CHLORIDE - SERUM 108 mmol/L (98-107); CREATININE - SERUM 0.6 mg/dL (0.6-1.3); GLUCOSE 115 mg/dL (74-106); POTASSIUM - SERUM 3.6 mmol/L (3.5-5.1); PROTEIN - SERUM 4.7 g/dL (6.4-8.2); SODIUM 142 mmol/L (136-145); UREA NITROGEN 9 mg/dL (7-18); eGFR NON AFRICAN AMERICAN > 90 mL/min (90-120)
[2018-05-04 08:47] VITALS: BP 152/64
[2018-05-04 12:46] VITALS: BP 168/70
[2018-05-04 16:27] VITALS: BP 146/57
[2018-05-04 21:18] VITALS: BP 138/49
[2018-05-05 04:29] VITALS: BP 124/51
[2018-05-05 05:59] LABS: BASOPHILS 0.2 % (0-2); EOSINOPHILS 0.8 % (0-7); HEMATOCRIT 24.3 % (36.0-48.0); HEMOGLOBIN 7.9 g/dL (12-16); IMMATURE GRANULOCYTES 0.3 % (0-5); LYMPHOCYTES 7.3 % (15-50); MCH 28.5 pg (26.0-34.0); MCHC 32.5 g/dL (31.0-37.0); MCV 87.7 fL (80.0-100.0); MEAN PLATELET VOLUME 9.5 fL (7.4-10.4); MONOCYTES 10.7 % (2-11); NEUTROPHILS 80.7 % (40-80); PLATELET COUNT 177 10x3/uL (130-400); RBC 2.77 10x6/uL (4.00-5.40); WBC 6.2 10x3/uL (4.8-10.8)
[2018-05-05 06:31] LABS: ALBUMIN 1.9 g/dL (3.4-5.0); ALKALINE PHOSPHATASE 71 U/L (46-116); ALT (SGPT) 17 U/L (10-68); BILIRUBIN - TOTAL 0.34 mg/dL (0.2-1.3); CALC OSMOLALITY 281 mosm/kg (275-300); CALCIUM 8.1 mg/dL (8.5-10.1); CARBON DIOXIDE 25.8 mmol/L (21.0-32.0); CHLORIDE - SERUM 107 mmol/L (98-107); CREATININE - SERUM 0.6 mg/dL (0.6-1.3); GLUCOSE 109 mg/dL (74-106); POTASSIUM - SERUM 3.6 mmol/L (3.5-5.1); PROTEIN - SERUM 5.2 g/dL (6.4-8.2); SODIUM 141 mmol/L (136-145); UREA NITROGEN 13 mg/dL (7-18); eGFR NON AFRICAN AMERICAN > 90 mL/min (90-120)
[2018-05-05 09:17] VITALS: BP 135/59
[2018-05-05 12:43] VITALS: BP 151/57
[2018-05-05 17:00] VITALS: BP 172/71
[2018-05-05 20:43] VITALS: BP 156/60
[2018-05-06] VITALS: BP 133/51
[2018-05-06 04:00] VITALS: BP 138/58
[2018-05-06 06:41] LABS: BASOPHILS 0.2 % (0-2); EOSINOPHILS 1.9 % (0-7); HEMATOCRIT 22.8 % (36.0-48.0); IMMATURE GRANULOCYTES 0.5 % (0-5); LYMPHOCYTES 8.5 % (15-50); MCH 28.6 pg (26.0-34.0); MCHC 32.5 g/dL (31.0-37.0); MEAN PLATELET VOLUME 9.3 fL (7.4-10.4); MONOCYTES 8.9 % (2-11); PLATELET COUNT 177 10x3/uL (130-400); RBC 2.59 10x6/uL (4.00-5.40); RDW 13.2 % (11.5-14.5); WBC 5.9 10x3/uL (4.8-10.8)
[2018-05-06 06:46] LABS: HEMOGLOBIN 7.4 g/dL (12-16)
[2018-05-06 07:07] LABS: ALBUMIN 1.8 g/dL (3.4-5.0); ALKALINE PHOSPHATASE 67 U/L (46-116); ALT (SGPT) 15 U/L (10-68); BILIRUBIN - TOTAL 0.33 mg/dL (0.2-1.3); CALC OSMOLALITY 281 mosm/kg (275-300); CALCIUM 7.5 mg/dL (8.5-10.1); CARBON DIOXIDE 25.5 mmol/L (21.0-32.0); CHLORIDE - SERUM 108 mmol/L (98-107); CREATININE - SERUM 0.6 mg/dL (0.6-1.3); GLUCOSE 97 mg/dL (74-106); POTASSIUM - SERUM 3.2 mmol/L (3.5-5.1); SODIUM 142 mmol/L (136-145); UREA NITROGEN 10 mg/dL (7-18); eGFR NON AFRICAN AMERICAN > 90 mL/min (90-120)
[2018-05-06 09:01] VITALS: BP 150/69
[2018-05-06 13:25] VITALS: BP 149/57
[2018-05-06 20:00] VITALS: BP 159/69
[2018-05-07 01:00] VITALS: BP 150/69
[2018-05-07 05:24] VITALS: BP 158/72
[2018-05-07 05:43] LABS: BASOPHILS 0.3 % (0-2); EOSINOPHILS 1.9 % (0-7); IMMATURE GRANULOCYTES 1.2 % (0-5); LYMPHOCYTES 8.4 % (15-50); MCHC 33.4 g/dL (31.0-37.0); MCV 86.7 fL (80.0-100.0); MEAN PLATELET VOLUME 9.3 fL (7.4-10.4); NEUTROPHILS 78.2 % (40-80); PLATELET COUNT 187 10x3/uL (130-400); RDW 13.8 % (11.5-14.5); WBC 6.7 10x3/uL (4.8-10.8)
[2018-05-07 05:45] LABS: HEMATOCRIT 31.4 % (36.0-48.0); HEMOGLOBIN 10.5 g/dL (12-16); RBC 3.62 10x6/uL (4.00-5.40)
[2018-05-07 06:29] LABS: ALKALINE PHOSPHATASE 82 U/L (46-116); ALT (SGPT) 15 U/L (10-68); BILIRUBIN - TOTAL 0.49 mg/dL (0.2-1.3); CALCIUM 8.5 mg/dL (8.5-10.1); CARBON DIOXIDE 28.8 mmol/L (21.0-32.0); CHLORIDE - SERUM 105 mmol/L (98-107); CREATININE - SERUM 0.6 mg/dL (0.6-1.3); GLUCOSE 115 mg/dL (74-106); PROTEIN - SERUM 5.5 g/dL (6.4-8.2); SODIUM 141 mmol/L (136-145); eGFR NON AFRICAN AMERICAN > 90 mL/min (90-120)
[2018-05-07 06:31] LABS: CALC OSMOLALITY 281 mosm/kg (275-300); POTASSIUM - SERUM 3.7 mmol/L (3.5-5.1); UREA NITROGEN 13 mg/dL (7-18)
[2018-05-07 08:24] VITALS: BP 163/68
[2018-05-07 11:03] VITALS: BP 171/77
[2018-05-07 16:33] VITALS: BP 151/73
[2018-05-07 20:00] VITALS: BP 152/74
[2018-05-08] VITALS: BP 156/74
[2018-05-08 04:00] VITALS: BP 155/63
[2018-05-08 06:11] LABS: BASOPHILS 0.2 % (0-2); EOSINOPHILS 3.6 % (0-7); HEMATOCRIT 27.8 % (36.0-48.0); HEMOGLOBIN 9.2 g/dL (12-16); LYMPHOCYTES 10.5 % (15-50); MCH 29.1 pg (26.0-34.0); MCHC 33.1 g/dL (31.0-37.0); MEAN PLATELET VOLUME 9.4 fL (7.4-10.4); MONOCYTES 10.4 % (2-11); NEUTROPHILS 74.3 % (40-80); PLATELET COUNT 180 10x3/uL (130-400); RBC 3.16 10x6/uL (4.00-5.40); RDW 13.9 % (11.5-14.5); WBC 5.9 10x3/uL (4.8-10.8)
[2018-05-08 06:42] LABS: ALBUMIN 1.6 g/dL (3.4-5.0); ALKALINE PHOSPHATASE 61 U/L (46-116); BILIRUBIN - TOTAL 0.23 mg/dL (0.2-1.3); CALC OSMOLALITY 282 mosm/kg (275-300); CALCIUM 7.3 mg/dL (8.5-10.1); CARBON DIOXIDE 27.1 mmol/L (21.0-32.0); CHLORIDE - SERUM 108 mmol/L (98-107); CREATININE - SERUM 0.6 mg/dL (0.6-1.3); GLUCOSE 108 mg/dL (74-106); POTASSIUM - SERUM 3.4 mmol/L (3.5-5.1); PROTEIN - SERUM 4.5 g/dL (6.4-8.2); SODIUM 141 mmol/L (136-145); UREA NITROGEN 14 mg/dL (7-18); eGFR NON AFRICAN AMERICAN > 90 mL/min (90-120)
[2018-05-08 06:44] LABS: ALT (SGPT) 9 U/L (10-68)
[2018-05-08 08:19] VITALS: BP 149/68
[2018-05-08 11:07] VITALS: BP 170/68
[2018-05-08 16:16] VITALS: BP 141/70
[2018-05-08 20:00] VITALS: BP 128/52
[2018-05-09] VITALS: BP 154/64
[2018-05-09 04:00] VITALS: BP 149/68
[2018-05-09 05:33] LABS: BASOPHILS 0.1 % (0-2); EOSINOPHILS 3.2 % (0-7); HEMATOCRIT 31.9 % (36.0-48.0); HEMOGLOBIN 10.4 g/dL (12-16); IMMATURE GRANULOCYTES 1.2 % (0-5); LYMPHOCYTES 7.1 % (15-50); MCH 28.9 pg (26.0-34.0); MCHC 32.6 g/dL (31.0-37.0); MCV 88.6 fL (80.0-100.0); MEAN PLATELET VOLUME 9.5 fL (7.4-10.4); MONOCYTES 8.6 % (2-11); NEUTROPHILS 79.8 % (40-80); RDW 13.9 % (11.5-14.5)
[2018-05-09 05:41] LABS: PLATELET COUNT 223 10x3/uL (130-400); WBC 8.6 10x3/uL (4.8-10.8)
[2018-05-09 06:01] LABS: ALKALINE PHOSPHATASE 71 U/L (46-116); BILIRUBIN - TOTAL 0.38 mg/dL (0.2-1.3); CALC OSMOLALITY 273 mosm/kg (275-300); CALCIUM 8.5 mg/dL (8.5-10.1); CARBON DIOXIDE 30.6 mmol/L (21.0-32.0); CHLORIDE - SERUM 102 mmol/L (98-107); CREATININE - SERUM 0.6 mg/dL (0.6-1.3); GLUCOSE 114 mg/dL (74-106); POTASSIUM - SERUM 4.4 mmol/L (3.5-5.1); PROTEIN - SERUM 5.6 g/dL (6.4-8.2); SODIUM 136 mmol/L (136-145); UREA NITROGEN 15 mg/dL (7-18); eGFR NON AFRICAN AMERICAN > 90 mL/min (90-120)
[2018-05-09 06:02] LABS: ALBUMIN 2.1 g/dL (3.4-5.0); ALT (SGPT) 12 U/L (10-68)
[2018-05-09 09:06] VITALS: BP 146/67
[2018-05-09 13:14] VITALS: BP 127/67
[2018-05-09 16:35] VITALS: BP 130/57
[2018-05-09 21:32] VITALS: BP 141/61
[2018-05-10 05:14] LABS: BASOPHILS 0.1 % (0-2); EOSINOPHILS 3.4 % (0-7); HEMATOCRIT 30.2 % (36.0-48.0); HEMOGLOBIN 9.8 g/dL (12-16); IMMATURE GRANULOCYTES 0.7 % (0-5); LYMPHOCYTES 7.5 % (15-50); MCHC 32.5 g/dL (31.0-37.0); MCV 89.3 fL (80.0-100.0); MEAN PLATELET VOLUME 9.5 fL (7.4-10.4); MONOCYTES 10.4 % (2-11); NEUTROPHILS 77.9 % (40-80); PLATELET COUNT 223 10x3/uL (130-400); RBC 3.38 10x6/uL (4.00-5.40)
[2018-05-10 05:19] VITALS: BP 130/65
[2018-05-10 05:20] LABS: ALKALINE PHOSPHATASE 56 U/L (46-116); ALT (SGPT) 11 U/L (10-68); CALC OSMOLALITY 279 mosm/kg (275-300); CALCIUM 8.6 mg/dL (8.5-10.1); CHLORIDE - SERUM 102 mmol/L (98-107); CREATININE - SERUM 0.7 mg/dL (0.6-1.3); GLUCOSE 113 mg/dL (74-106); POTASSIUM - SERUM 4.2 mmol/L (3.5-5.1); PROTEIN - SERUM 5.2 g/dL (6.4-8.2); SODIUM 139 mmol/L (136-145); UREA NITROGEN 15 mg/dL (7-18); eGFR NON AFRICAN AMERICAN 84 mL/min (90-120)
[2018-05-10 09:05] VITALS: BP 138/63
[2018-05-10 16:19] VITALS: BP 139/59
[2018-05-10 19:47] VITALS: BP 151/62
[2018-05-11 04:56] VITALS: BP 134/58
[2018-05-11 06:46] LABS: BASOPHILS 0.2 % (0-2); EOSINOPHILS 2.3 % (0-7); HEMATOCRIT 31.1 % (36.0-48.0); HEMOGLOBIN 9.9 g/dL (12-16); IMMATURE GRANULOCYTES 0.9 % (0-5); LYMPHOCYTES 8.5 % (15-50); MCH 28.7 pg (26.0-34.0); MCHC 31.8 g/dL (31.0-37.0); MCV 90.1 fL (80.0-100.0); MEAN PLATELET VOLUME 9.6 fL (7.4-10.4); MONOCYTES 14.2 % (2-11); NEUTROPHILS 73.9 % (40-80); PLATELET COUNT 287 10x3/uL (130-400); RBC 3.45 10x6/uL (4.00-5.40); RDW 14.1 % (11.5-14.5); WBC 6.6 10x3/uL (4.8-10.8)
[2018-05-11 07:12] LABS: ALBUMIN 2.1 g/dL (3.4-5.0); ALKALINE PHOSPHATASE 55 U/L (46-116); ALT (SGPT) 12 U/L (10-68); BILIRUBIN - TOTAL 0.23 mg/dL (0.2-1.3); CALC OSMOLALITY 277 mosm/kg (275-300); CHLORIDE - SERUM 101 mmol/L (98-107); CREATININE - SERUM 0.7 mg/dL (0.6-1.3); GLUCOSE 107 mg/dL (74-106); POTASSIUM - SERUM 4.7 mmol/L (3.5-5.1); PROTEIN - SERUM 4.6 g/dL (6.4-8.2); SODIUM 138 mmol/L (136-145); UREA NITROGEN 17 mg/dL (7-18); eGFR NON AFRICAN AMERICAN 84 mL/min (90-120)
[2018-05-11 08:18] VITALS: BP 148/58
[2018-05-11 12:47] VITALS: BP 155/62
[2018-05-11 16:57] VITALS: BP 137/57
[2018-05-11 19:44] VITALS: BP 125/53
[2018-05-12 04:45] VITALS: BP 132/62
[2018-05-12 09:18] VITALS: BP 133/71
[2018-05-12 12:28] VITALS: BP 128/57
[2018-05-12] MEDS ORDERED: MORPHINE IMMEDI30 M1 PO (16:01)
[2018-05-12 16:28] VITALS: BP 119/52
[2018-05-12] MEDS ORDERED: DURAGESIC PATCH TRANSDERM (18:51)
[2018-05-12 20:06] VITALS: BP 144/61
[2018-05-13 04:26] VITALS: BP 122/52
[2018-05-13 09:47] VITALS: BP 113/52
[2018-05-13 13:46] VITALS: BP 146/60
== END 2018-05-13 13:15 | disposition home health service (06) | DRG 438 ==
LOC: D.ER 16:43 → D.EDHOLD 23:38 → D.MS 23:38 → D.SDCHOLD 05-07 17:34 → D.MS 05-07 17:36
PROVIDERS: Family Medicine; Radiology Diagnostic Radiology
PROC: 02HV33Z Insertion of Infusion Device into Superior Vena Cava, Percutaneous Approach (ICD-10-PCS; principal; 2018-05-04 17:31)
DX: K86.9 Disease of pancreas, unspecified (principal); E43 Unspecified severe protein-calorie malnutrition; C34.11 Malignant neoplasm of upper lobe, right bronchus or lung; N17.9 Acute kidney failure, unspecified; R10.9 Unspecified abdominal pain; R19.7 Diarrhea, unspecified; M54.2 Cervicalgia; M25.511 Pain in right shoulder; E86.0 Dehydration; I10 Essential (primary) hypertension; K21.9 Gastro-esophageal reflux disease without esophagitis; E03.9 Hypothyroidism, unspecified; E87.6 Hypokalemia; D64.9 Anemia, unspecified; M19.90 Unspecified osteoarthritis, unspecified site; Z68.24 Body mass index [BMI] 24.0-24.9, adult; M47.812 Spondylosis without myelopathy or radiculopathy, cervical region

== ENCOUNTER 2019-02-25 21:37 | Inpatient (IN) | payer OTHER ==
[~2019-02-25] VITALS: Ht 162.6 cm; Wt 63.6 kg
[~2019-02-25 21:37] MED LIST changes: +DURAGESIC PATCH TRANSDERM; +MORPHINE IMMEDI30 M1 PO
--- NOTE | 2019-02-25 21:40 | NUR ---
PT ARRIVED TO THE FLOOR BY AMBULANCE. PT VERY SHORT OF BREATH. ON 100% NON REBREATHER. PT NOT VERBALLY RESPONDING. FAMILY WITH PT. WILL FALLOW UP.
--- NOTE | 2019-02-25 22:00 | NUR ---
STARTED IV ATTEMPTS X2. 22G LT FA. PT TOLERATED WELL.
--- NOTE | 2019-02-25 22:40 | NUR ---
HOSPICE NURSE PRONOUNCED PT TIME OF .
[2019-02-25 22:44] VITALS: BMI 24.0
[2019-02-28 17:22] VITALS: Ht 162.6 cm; Wt 63.6 kg
== END 2019-02-25 23:57 | DRG 951 ==
LOC: D.MS 21:37
PROVIDERS: ADMIT Legal Medicine; ATTEND Legal Medicine
DX: Z51.5 Encounter for palliative care (principal)